=== PATIENT | female | born 1945 | race Caucasian/White ===

== ENCOUNTER → 2016-06-03 | Outpatient (CLI) | payer OTHER ==
[~2016-06-03] MED LIST: ASPI81TA28 PO; CALC-20 PO; CARB25TA14 PO; CHOL1CAP57 PO; COEN1CAP17 PO; ESCI10TA17 PO; LORA-741 PO; PRAM1TAB PO
--- NOTE | 2016-06-03 14:09 | MAMMOGRAPHY REPORT ---
BILATERAL DIGITAL SCREENING MAMMOGRAM TOMOSYNTHESIS WITH CAD: 06/03/2016 CLINICAL HISTORY: Routine screening. Patient has no complaints. TECHNIQUE: Breast tomosynthesis in addition to standard 2D mammography was performed. Current study was also evaluated with a Computer Aided Detection (CAD) system. COMPARISON: Comparison is made to exams dated: 12/08/2015 mammogram, 06/09/2015 mammogram, 06/01/2015 mammogram, 05/29/2014 mammogram, 05/28/2013 mammogram, and 05/10/2012 mammogram - [facility]. BREAST COMPOSITION: There are scattered areas of fibroglandular density in both breasts. FINDINGS: No suspicious masses, calcifications, or areas of architectural distortion are noted in e ither breast. There has been no significant interval change compared to prior exams. IMPRESSION: ACR BI-RADS CATEGORY 1: NEGATIVE There is no mammographic evidence of malignancy. A 1 year screening mammogram is recommended. The p atient will receive written notification of the results. Approximately 10% of breast cancers are not detected with mammography. A negative mammographic repor t should not delay biopsy if a clinically suggestive mass is present. Sarah Merida M.D. /:06/03/2016 07:59:41 Director Of Advertising Sales: Kailey GUPTA(Dunia)(Jessica), [facility] letter sent: Normal 1/2 BI-RADS Code: ACR BI-RADS Category 1: Negative
== END | disposition home or self-care (01) ==
LOC: C.MAMM 07:38
PROVIDERS: ATTEND Obstetrics & Gynecology
DX: Z12.31 Encounter for screening mammogram for malignant neoplasm of breast (principal)

== ENCOUNTER 2016-09-25 12:51 | Emergency (ER) | payer OTHER ==
[~2016-09-25] VITALS: Ht 162.6 cm; Wt 69.4 kg
[~2016-09-25 12:51] MED LIST changes: -LORA-741 PO
[2016-09-25 12:55] VITALS: TEMP 36.6; Ht 162.6 cm; Wt 69.4 kg
[2016-09-25] MEDS ORDERED: LORAZEPAM 0.5 MG TAB SL STA (13:07)
[2016-09-25] MEDS ORDERED: LORA-741 PO (14:29)
--- NOTE | 2016-09-25 14:30 | EMERGENCY ROOM VISIT NOTE ---
History First contact with patient: 12:57 Chief Complaint: OTHER COMPLAINT Stated Complaint: LF LEG TREMOR/PAIN History of Present Illness The patient is a 70 year old female who presents to the Emergency Room via EMS with complaints of worsening left leg tremor associated with her Parkinson's. The patient states over the last 4 days she has had increased left leg tremor. She states she can not walk due to the tremor. Her has been wheeling her in a wheelchair. The patient thinks it is anxiety. She is on anti-anxiety medicine. She takes Lexapro as well as buspirone 10 mg twice daily. The patient states that she called in to her doctor last week about the increased tremors and one of her medicines was increased she is not sure which one. She is followed by Sydney Fontana at [facility] for her Parkinson's. Unfortunately Ms. Fontana is leaving the practice on October 16 and therefore the patient's follow-up appointment was canceled. A new provider has not been selected for the patient yet. The patient is followed by Dr. Barnes locally. There is also concerned that she will need to be placed somewhere when her goes for a stem cell transplant at [facility] for his multiple myeloma. The states that he will get a call on October 10 to inform him when he will be going to [place] and the length of treatment. They are not looking for placement today. Review of Systems 10 system review was performed and was negative unless stated otherwise history of present illness. Past Medical/Surgical History Medical Problems: (1) Parkinson's disease Family History Lung disease Social History Smoking Status: Never Smoker Marital Status: Housing Status: lives with family Occupation Status: employed Current/Historical Medications Scheduled Aspirin (Aspirin Ec), 81 MG PO DAILY Calcium Carbonate-Vitamin D (Calcium 600 + D), 1 TABLET PO BID Carbidopa/Levodopa (Sinemet 25MG/250MG), 1 TAB PO QID Cholecalciferol (Vitamin D3), 1 CAPSULE PO QAM Coenzyme Q10 (Ubidecarenone) (Co Q 10), 100 MG PO QAM Escitalopram (Lexapro), 10 MG PO QAM Pramipexole Dihydrochloride (Mirapex), 1 MG PO 6 TIMES A DAY Allergies Coded Allergies: Sulfa Drugs (Verified Allergy, Intermediate, ITCH, NOT EFFECTIVE, 11/19/14) Physical Exam Vital Signs Date Time Temp Pulse Resp B/P (MAP) Pulse Ox O2 Delivery O2 Flow Rate FiO2 09/25/16 12:55 36.6 91 21 148/82 94 Room Air Physical Exam GENERAL: 70-year-old white female appears in no acute distress. Generalized tremor throughout MENTAL STATUS: Alert and oriented 3 NECK: Supple, no lymphadenopathy noted. No carotid bruits noted. LUNGS: Clear auscultation without wheezes rales or rhonchi. CARDIAC: Regular rate and rhythm without murmur. Pulses is full and equal throughout. MUSCULOSKELETAL: Patient has a resting tremor throughout but the left leg is much worse than the remainder of the extremities. Medical Decision & Procedures Medications Administered Medications (Trade) Dose Ordered Sig/Greg Route Start Time Stop Time Status Last Admin Dose Admin Lorazepam (Ativan Tab) 0.5 mg NOW STAT SL 09/25/16 13:07 09/25/16 13:08 DC 09/25/16 13:13 0.5 MG ED Course The patient was evaluated. I had the watch caser talk with the patient and her about initiating placement for the patient while her is at [facility]. They are not 1 need to do something today. They will contact Dr. Barnes closer to time of the 's treatment. The patient was given Ativan 0.5 mg by mouth. The patient was reevaluated and stated she was feeling much better. Her left leg had only a minimal tremor. I instructed the nurse to get the patient up and walk her to make sure she could ambulate with some assistance. The nurse was busy and could not get the patient up for quite some time and when I went into reevaluate the patient she had increased tremors because she was agitated. I was able to get the patient up and she was ambulating with my assistance with minimal difficulty. The patient was placed in a wheelchair so that the patient could take her home. The patient was discharged home in stable condition. Medical Decision The patient presented with worsening Parkinson tremor most likely secondary to anxiety and agitation. She responded well to Ativan. She will be discharged with a prescription for Ativan until she sees her family physician this week. Impression Primary Impression: Parkinson's disease Additional Impression: Anxiety Departure Information Dispostion Home / Self-Care Condition GOOD Prescriptions Lorazepam (ATIVAN) 0.5 Mg Tab 1 TAB PO Q6H, #12 TAB Prov: Stella Evans PA-C 09/25/16 Referrals Richie Johnson M.D. (PCP) Forms HOME CARE DOCUMENTATION FORM, IMPORTANT VISIT INFORMATION, WORK / SCHOOL INSTRUCTIONS Patient Instructions Anxiety Disorder, My [facility] Additional Instructions Continue all your current meds as prescribed. Take the Ativan as needed every 6 hours for agitation or increased tremor. Call Dr. Barnes tomorrow for follow- up appointment for reevaluation and discuss placement while your is in [place]. Problem Qualifiers
[2016-09-25 14:42] VITALS: BP 125/71; PULSE 84; O2SAT 96
--- NOTE | 2016-09-25 16:44 | EMERGENCY ROOM VISIT NOTE ---
ED Visit Note First contact with patient: 12:57 I have seen and examined this patient with Stella Evans and generally agree with the treatment plan as discussed.
== END 2016-09-25 14:43 | disposition home or self-care (01) ==
LOC: EDBD 12:51 → C.EDA 12:52
DX: G20 Parkinson's disease (principal); F41.9 Anxiety disorder, unspecified; Z79.82 Long term (current) use of aspirin

== ENCOUNTER → 2017-09-05 | Day surgery (SDC) | payer OTHER ==
[2017-08-08 11:40] VITALS: Ht 162.6 cm; Wt 53.2 kg
[~2017-09-05] VITALS: Ht 162.6 cm; Wt 53.2 kg
[~2017-09-05] MED LIST changes: +500ML BSS 0.3ML EPI 1:1000PF IRRIG ONE; +ACETAMINOPHEN 325 MG TAB PO PRN; +AMVISC PLUS 0.8ML SYRINGE INT OCU ONE; +ATROPINE SULFATE 0.1 MG/ML 5ML SYR IV PRN; +BSS FLUSH ONE; +BUSP-8 PO; -CALC-20 PO; +CALC600T9 PO; +CLON0.5T3 PO; -ESCI10TA17 PO; +ESCI1TAB10 PO; +EpHEDrine SULFATE INJ 50 MG/ML AMP IV PRN; +EpINEphrine INJ 1MG/ML AMP 1 MG/ML AMP ONE; +FSMD/70 PO; +LACTATED RINGER'S 1000ML 500 ML IV SCH; +LIDOCAINE 3.5% OPH GEL PER APPLICATION CHARGE ONE; +LIDOCAINE HCL 1% MPF 2 ML VIAL ONE; +MIDAZOLAM HCL 1 MG/ML 2ML VIAL ONE; +OCUCOAT 1 ML SOLN IO ONE; +POVIDONE-IODINE OP SOLN 30 ML BTL ONE; -PRAM1TAB PO; +PROPARACAINE 0.5% OP SOLN PER DROP CHARGE OPL SCH; +PSYLLIUM PO; +TOBRAMYCIN/DEXAMETHASONE OPH OINT PER APPLN CHARGE ONE
--- NOTE | 2017-09-05 09:23 | History & Physical Bridge - SC ---
H&P Re-Evaluation Bridge Note: I have examined the patient, reviewed the History & Physical and in the interval since the performance of the History & Physical I have noted the following changes of clinical significance: No changes noted
[2017-09-05] MEDS: PHENYLEPHRINE HCL 2.5% OP SOLN PER DROP CHARGE OPL SCH ×2 (09:26→09:33)
[2017-09-05] MEDS: TROPICAMIDE 1% OP SOLN PER DROP CHARGE OPL SCH ×2 (09:27→09:35)
[2017-09-05] MEDS: CYCLOPENTOLATE HCL 1% OP SOLN PER DROP CHARGE OPL SCH ×2 (09:28→09:35)
[2017-09-05] MEDS: KETOROLAC 0.5% OP SOLN PER DROP CHARGE OPL SCH ×2 (09:29→09:36)
[2017-09-05] MEDS: GATIFLOXACIN OP SOLN PER DROP CHARGE OPL SCH ×2 (09:31→09:40)
--- NOTE | 2017-09-05 09:58 | [facility] Operative Report ---
Operative Report Date of Service September 05, 2017. Operative Report 1. PREOPERATIVE DIAGNOSIS: Cataract of the left eye. 2. POSTOPERATIVE DIAGNOSIS: Same. 3. PROCEDURE: Phacoemulsification with intraocular lens implantation of the left eye. SURGEON: Dr. Fabien Martínez. ANESTHESIA: Topical Lidocaine gel, 1% Non- Preserved intracameral Lidocaine, and monitored intravenous sedation. INDICATIONS FOR THE PROCEDURE: The patient is a 71 - year-old female with a history of cataract of the left eye causing significant visual impairment. The details of the proposed procedure were explained to the patient who asked appropriate questions and following discussion of all risks, benefits and alternatives agreed to have the procedure done. 4. OPERATION AND FINDINGS: DESCRIPTION OF PROCEDURE: After informed consent was obtained, the patient was brought to the Operating Room at the [facility]. The patient was placed in a supine position and then the left eye was prepped and draped in the usual sterile fashion for intraocular surgery. A drop of topical Lidocaine gel was placed in the operative eye. A wire lid speculum was then placed in the fornices. A corneal paracentesis was then created temporally. The Non-Preserved Lidocaine was then instilled into the anterior chamber. The anterior chamber was then pressurized with viscoelastic. A 2.0 mm clear corneal incision was then created temporally. A cystotome was inserted into the anterior chamber and used to create a tear in the anterior lens capsule. This capsular tear was then used to create a small flap and the flap was dragged in a counterclockwise direction in order to create a continuous curvilinear capsulorrhexis. Hydrodissection was accomplished with balanced salt solution. Phacoemulsification of the lens nucleus was then performed in a standard [id number] technique. The phaco time was 21 seconds with an average power of 12 %. The remaining cortical material was removed using irrigation aspiration. The capsular bag was then filled with viscoelastic. A [employer] Lomb MI60L +18.0 diopters lens was then loaded into the injector and injected into the capsular bag. The remaining viscoelastic was removed with the irrigation aspiration handpiece. The wound was hydrated and then checked and found to be watertight. The intraocular pressure was checked and found to be adequate. The wire lid speculum was removed and the patient's face was cleaned and dried. TobraDex ointment was placed in the inferior fornix. The patient was discharged to the Recovery Room having tolerated the procedure well. There were no complications. The patient will be seen tomorrow in the office for follow-up. I attest to the content of the Intraoperative Record and any orders documented therein. Any exceptions are noted below.
--- NOTE | 2017-09-05 09:59 | Discharge Instructions-SurgCtr ---
Discharge Instructions Date of Service September 05, 2017. Visit Reason for Visit: Left Cataract Discharge Discharge Diagnosis / Problem: cataract Discharge Goals Goal(s): Improve function Activity Recommendations Activity Limitations: per Instructions/Follow-up section Anesthesia . Post Anesthesia Instructions: If you have had General Anesthesia or IV Sedation: * Do not drive today. * Resume driving when surgeon permits. * Do not make important decisions or sign legal documents today. * Call surgeon for: 1. Temperature elevations greater than 101 degrees F. 2. Uncontrollable pain. 3. Excessive bleeding. 4. Persistent nausea and vomiting. 5. Medication intolerance (nausea, vomiting or rash). * For nausea and vomiting use only clear liquids such as: tea, soda, bouillon until nausea subsides, then gradually increase diet as tolerated. * If you have any concerns or questions, call your surgeon's office. If physician is unavailable and it is an emergency, call 911 or go to the nearest emergency room. . Diet Recommendations Home Diet: resume previous diet Procedures Procedures Performed: Left Cataract Phacoemulsification With Intraocular Lens Implant Pending Studies Studies pending at discharge: no Medical Emergencies . Who to Call and When: Medical Emergencies: If at any time you feel your situation is an emergency, please call 911 immediately. . Non-Emergent Contact Non-Emergency issues call your: Director Speech And Hearing . . "Provider Documentation" section prepared by Fabien Martínez. .
[2017-09-05 10:01] VITALS: TEMP 36.4
[2017-09-05 10:34] VITALS: BP 136/81; PULSE 73; O2SAT 98
--- NOTE | 2017-09-05 10:40 | Anesthesia Progress Nt - [facility] ---
Anesthesia Post Op Note Date & Time September 05, 2017 at 10:40 Vital Signs Pain Intensity: 0 Vital Signs Past 12 Hours Date Time Temp Pulse Resp B/P (MAP) Pulse Ox O2 Delivery O2 Flow Rate FiO2 09/05/17 10:34 73 16 136/81 (99) 98 Room Air 09/05/17 10:01 36.4 71 16 146/78 (100) 98 Room Air 09/05/17 08:51 36.9 78 16 139/84 (102) 96 Room Air Notes Mental Status: alert / awake / arousable, participated in evaluation Pt Amnestic to Procedure: Yes Nausea / Vomiting: adequately controlled Pain: adequately controlled Airway Patency, RR, SpO2: stable & adequate BP & HR: stable & adequate Hydration State: stable & adequate Anesthetic Complications: no major complications apparent
== END | disposition home or self-care (01) ==
LOC: X.SURG 08:27
PROVIDERS: ATTEND Ophthalmology
DX: H26.9 Unspecified cataract (principal); G20 Parkinson's disease; F41.9 Anxiety disorder, unspecified; F32.9 Major depressive disorder, single episode, unspecified; Z88.2 Allergy status to sulfonamides; Z88.8 Allergy status to other drugs, medicaments and biological substances

== ENCOUNTER 2017-09-08 13:01 | Emergency (ER) | payer OTHER ==
[~2017-09-08] VITALS: Ht 152.4 cm; Wt 53.0 kg
[~2017-09-08 13:01] MED LIST changes: -500ML BSS 0.3ML EPI 1:1000PF IRRIG ONE; -ACETAMINOPHEN 325 MG TAB PO PRN; -AMVISC PLUS 0.8ML SYRINGE INT OCU ONE; -ATROPINE SULFATE 0.1 MG/ML 5ML SYR IV PRN; -BSS FLUSH ONE; -EpHEDrine SULFATE INJ 50 MG/ML AMP IV PRN; -EpINEphrine INJ 1MG/ML AMP 1 MG/ML AMP ONE; -LACTATED RINGER'S 1000ML 500 ML IV SCH; -LIDOCAINE 3.5% OPH GEL PER APPLICATION CHARGE ONE; -LIDOCAINE HCL 1% MPF 2 ML VIAL ONE; -MIDAZOLAM HCL 1 MG/ML 2ML VIAL ONE; -OCUCOAT 1 ML SOLN IO ONE; -POVIDONE-IODINE OP SOLN 30 ML BTL ONE; -PROPARACAINE 0.5% OP SOLN PER DROP CHARGE OPL SCH; -TOBRAMYCIN/DEXAMETHASONE OPH OINT PER APPLN CHARGE ONE
[2017-09-08 13:11] VITALS: TEMP 37.1; Ht 152.4 cm; Wt 53.0 kg
--- NOTE | 2017-09-08 14:22 | EMERGENCY ROOM VISIT NOTE ---
History Report prepared by Steffen: Dayana Guzman Under the Supervision of: Dr. Alexis Chávez M.D. 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 Positive back pain. Negative headache, neck pain, SOB, chest pain, abdominal pain. She states that she lives with her but came into the ED because she states "her wants to kill her." The patient notes she has ecchymosis to her LUE and reports this is from her "dragging her up the stairs." She takes Parkinson's medications regularly. Source of History: patient Onset: 6 days captain airline pilot Position: head, other (upper and lower extremities) Quality: other (fall) Timing: other (after her fall) Associated Symptoms: + back pain, No headache, No neck pain, No chest pain, No SOB, No abdominal pain Review of Systems See HPI for pertinent positives and negatives. A total of ten systems were reviewed and were otherwise negative. Past Medical & Surgical Medical Problems: (1) Parkinson's disease Family History Lung disease Social History Smoking Status: Never Smoker Marital Status: Housing Status: lives with family Occupation Status: employed Current/Historical Medications Scheduled Alendronate/Cholecalciferol (Fosamax+D 70MG/2800 Iu), 1 TABLET PO WK Aspirin (Aspirin Ec), 81 MG PO DAILY Buspirone Hcl (Buspirone Hcl), 1.5 TAB PO TID Calcium Carbonate-Vitamin D (Calcium + D), 1 TAB PO BID Carbidopa/Levodopa (Sinemet 25MG/250MG), 1 TAB PO QID Cholecalciferol (Vitamin D3), 1 CAPSULE PO QAM Coenzyme Q10 (Ubidecarenone) (Co Q 10), 100 MG PO QAM Escitalopram Oxalate (Lexapro), 20 MG PO QAM Venlafaxine Hcl (Effexor Extended Rel), 150 MG PO DAILY [Psyllium], 400 MG PO TID Scheduled PRN Clonazepam (Klonopin), 0.5 MG PO DIRECTED PRN for Anxiety Allergies Coded Allergies: Gabapentin (Verified Allergy, Unknown, INCREASED TREMORS, ANXIETY/ DEPRESSION, 09/08/17) Sulfa Antibiotics (Verified Allergy, Unknown, ITCH, 09/08/17) Physical Exam Vital Signs Date Time Temp Pulse Resp B/P (MAP) Pulse Ox O2 Delivery O2 Flow Rate FiO2 09/08/17 17:41 100 18 143/89 96 Room Air 09/08/17 16:52 99 18 147/88 98 Room Air 09/08/17 15:14 91 18 146/89 94 Room Air 09/08/17 13:44 78 09/08/17 13:11 37.1 83 18 106/69 95 Room Air Physical Exam GENERAL: Awake, alert, well-appearing, tearful, mild distress HENT: Normocephalic, atraumatic. EYES: Normal conjunctiva. Sclera non-icteric. PERRL. No anisocoria. NECK: Supple. No nuchal rigidity. FROM. No midline C Spine TTP. RESPIRATORY: CTAB, no rhonchi, wheezing, crackles CARDIAC: RRR, no MRG ABDOMEN: Soft, NTND, BS+ MSK: No chest wall TTP, no LE edema. Ecchymosis to the left upper arm. NEURO: GCS 15, CN 2-12 intact, moves all 4s on command, b/l UE tremors SKIN: No rash or jaundice noted. Medical Decision & Procedures ER Provider Diagnostic Interpretation: Radiology results as stated below per my review and radiologist interpretation: L HUMERUS MIN 2 VIEWS ROUTINE CLINICAL HISTORY: Left humeral pain. COMPARISON: None. DISCUSSION: No fractures or dislocations are visualized. A venous catheter is visualized in the antecubital fossa. IMPRESSION: No fractures or dislocations identified. Electronically signed by: Esau Chua M.D. 09/08/2017 2:[address] SCAN OF THE BRAIN WITHOUT IV CONTRAST CLINICAL HISTORY: Change in mental status. Psychiatric clearance. COMPARISON STUDY: No priors. TECHNIQUE: Unenhanced axial CT scan of the brain is performed from the vertex to the skull base. A dose lowering technique was utilized adhering to the principles of ALARA. The examination is compromised by motion artifact. The patient was scanned twice in an effort to improve image quality. CT DOSE: 1277.12 mGycm FINDINGS: Brain parenchyma: There are age-related involutional changes noting mild subcortical and periventricular microangiopathic change. There is no hemorrhage, mass effect, or evidence of acute territorial ischemia by CT criteria. [place]-white matter is preserved. No extra-axial fluid collection is seen. Ventricles, sulci, cisterns: Prominent secondary to involutional change. Intracranial vasculature: There is atherosclerotic calcification of the cavernous carotid and vertebral arteries. Calvarium: The skeletal structures are osteopenic. The calvarium appears intact. There is a small osteoma arising from the right frontal calvarium. Sinuses and mastoids: The visualized paranasal sinuses are clear. The mastoid air cells are well pneumatized. Orbits: The bony orbits are grossly intact. There is a left ocular lens implant. IMPRESSION: There is no hemorrhage, mass effect, or evidence of acute territorial ischemia by CT criteria noting a motion degraded examination. Electronically signed by: Asher Lima M.D. 09/08/2017 3:14 PM CHEST ONE VIEW PORTABLE CLINICAL HISTORY: Mood Disorder COMPARISON STUDY: No previous studies for comparison. FINDINGS: The heart is mildly enlarged. There is no failure. Increased basal markings are likely atelectatic. There are no pleural effusions.[ IMPRESSION: 1. Bibasilar opacities statistically atelectatic. No evidence of lobar consolidation Electronically signed by: Esau Chua M.D. 09/08/2017 2:58 PM Laboratory Results 09/08/17 14:45 Red Blood Count 4.25, Mean Corpuscular Volume 90.8, Mean Corpuscular Hemoglobin 31.1, Mean Corpuscular Hemoglobin Concent 34.2, Mean Platelet Volume 10.8, Neutrophils (%) (Auto) 66.2, Lymphocytes (%) (Auto) 25.6, Monocytes (%) (Auto) 6.5, Eosinophils (%) (Auto) 1.2, Basophils (%) (Auto) 0.3, Neutrophils # (Auto) 6.12, Lymphocytes # (Auto) 2.37, Monocytes # (Auto) 0.60, Eosinophils # (Auto) 0.11, Basophils # (Auto) 0.03 09/08/17 14:45 Test 09/08/17 14:25 09/08/17 14:44 09/08/17 14:45 09/08/17 15:50 Salicylates Level < 1.7 mg/dl (2.8-20) Acetaminophen Level < 2 ug/ml (10-30) Ethyl Alcohol mg/dL < 3.0 mg/dl (0-3) White Blood Count 9.25 K/uL (4.8-10.8) Red Blood Count 4.25 M/uL (4.2-5.4) Hemoglobin 13.2 g/dL (12.0-16.0) Hematocrit 38.6 % (37-47) Mean Corpuscular Volume 90.8 fL (80-100) Mean Corpuscular Hemoglobin 31.1 pg (25-34) Mean Corpuscular Hemoglobin Concent 34.2 g/dl (32-36) Platelet Count 291 K/uL (130-400) Mean Platelet Volume 10.8 fL (7.4-10.4) Neutrophils (%) (Auto) 66.2 % Lymphocytes (%) (Auto) 25.6 % Monocytes (%) (Auto) 6.5 % Eosinophils (%) (Auto) 1.2 % Basophils (%) (Auto) 0.3 % Neutrophils # (Auto) 6.12 K/uL (1.4-6.5) Lymphocytes # (Auto) 2.37 K/uL (1.2-3.4) Monocytes # (Auto) 0.60 K/uL (0.11-0.59) Eosinophils # (Auto) 0.11 K/uL (0-0.5) Basophils # (Auto) 0.03 K/uL (0-0.2) RDW Standard Deviation 45.6 fL (36.4-46.3) RDW Coefficient of Variation 13.8 % (11.5-14.5) Immature Granulocyte % (Auto) 0.2 % Immature Granulocyte # (Auto) 0.02 K/uL (0.00-0.02) Anion Gap 4.0 mmol/L (3-11) Est Creatinine Clear Calc Drug Dose 45.3 ml/min Estimated GFR () 82.8 Estimated GFR (Non- 71.4 BUN/Creatinine Ratio 24.9 (10-20) Calcium Level 9.2 mg/dl (8.5-10.1) Total Bilirubin 0.7 mg/dl (0.2-1) Direct Bilirubin 0.2 mg/dl (0-0.2) Aspartate Amino Transf (AST/SGOT) 28 U/L (15-37) Alanine Aminotransferase (ALT/SGPT) 10 U/L (12-78) Alkaline Phosphatase 99 U/L (45-117) Total Protein 8.0 gm/dl (6.4-8.2) Albumin 4.0 gm/dl (3.4-5.0) Thyroid Stimulating Hormone (TSH) 0.667 uIu/ml (0.300-4.500) Urine Color DK YELLOW Urine Appearance CLEAR (CLEAR) Urine pH 6.0 (4.5-7.5) Urine Specific [place] 1.028 (1.000-1.030) Urine Protein NEG (NEG) Urine Glucose (UA) NEG (NEG) Urine Ketones 1+ (NEG) Urine Occult Blood NEG (NEG) Urine Nitrite NEG (NEG) Urine Bilirubin NEG (NEG) Urine Urobilinogen NEG (NEG) Urine Leukocyte Esterase SMALL (NEG) Urine WBC (Auto) 5-10 /hpf (0-5) Urine RBC (Auto) 0-4 /hpf (0-4) Urine Hyaline Casts (Auto) >30 /lpf (0-5) Urine Epithelial Cells (Auto) >30 /lpf (0-5) Urine Bacteria (Auto) NEG (NEG) Urine Renal Epithelial Cells 0-5 /lpf (0-5) Urine Pathogenic Casts /lpf (0) Urine Opiates Screen NEG (NEG) Urine Methadone, Qualitative NEG (NEG) Urine Barbiturates NEG (NEG) Urine Phencyclidine (PCP) Level NEG (NEG) Ur Amphetamine/Methamphetamine NEG (NEG) MDMA (Ecstasy) Screen NEG (NEG) Urine Benzodiazepines Screen NEG (NEG) Urine Cocaine Metabolite NEG (NEG) Urine Marijuana (THC) NEG (NEG) Laboratory results reviewed by me Medications Administered Medications (Trade) Dose Ordered Sig/Greg Route Start Time Stop Time Status Last Admin Dose Admin Lorazepam (Ativan Inj) 2 mg STK-MED ONCE .ROUTE 09/08/17 14:52 09/08/17 14:53 DC 09/08/17 14:55 2 MG Lorazepam (Ativan Inj) 0.5 mg NOW STAT IV 09/08/17 15:30 09/08/17 15:31 DC 09/08/17 15:39 0.5 MG ECG Per My Interpretation Indication: other (fall) Rate (beats per minute): 82 Rhythm: normal sinus Findings: RBBB (wide), T-wave inversion (Anterior, Inferior), left axis deviation, no ectopy, other (wide QRS, ) Comparison ECG Date: 11/2014 Change: TWI and RBBB are old compared to 11/2014 ED Course 1417: The patient was evaluated in room B4. A complete history and physical exam was performed. 1515: I talked to [facility] Psych. The Psych Commercial Sales Consultant will come and talk to the patient and ensure home safety. 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 Positive back pain. Negative headache, neck pain, SOB, chest pain, abdominal pain. Nursing notes reviewed. Ancillary studies and prior records reviewed. Differential diagnosis: Etiologies such as ICH, mood disorder, infection, hypoglycemia, electrolyte abnormalities, cardiac sources, intracerebral event, toxicologic, neurologic, fracture, dislocation, neurovascular compromise, compartment syndrome, soft tissue injury, as well as others were entertained. Patient was seen and evaluated the bedside. Patient does have a known history of Parkinson's disease. There was concern about a fall days ago. The patient does have some mild ecchymosis to the left upper extremity. Patient denies falling the patient is tearful and wants to go home. Very limited history upon initial presentation. Patient did have a psych clearance workup as well as a CT of the brain to rule out any other traumatic injury that may be causing her emotional lability. Patient's blood work was fairly unremarkable CT brain is negative acute. Chest x-ray likely atelectasis. Humerus film negative for acute fracture or dislocation. Patient does have mild tremor on exam which is explained by her Parkinson's disease. The patient's did present at the bedside. She has been having weight waxing and waning dementia type symptoms. I did have both the psych telephonic case manager as well as telephonic case manager discuss possible care and placement of the patient. The is comfortable with taking the patient home and does have sufficient outpatient resources such as in-home care as well as possible long-term care in the future. He is agreeable to this plan of care. Patient was deemed suitable for outpatient follow-up and treatment at this time. Outpatient discharge Medication Reconcilliation Current Medication List: was personally reviewed by me Blood Pressure Screening Patient's blood pressure: Normal blood pressure Blood pressure disposition: Did not require urgent referral Impression Primary Impression: Dementia Additional Impression: Mood changes Scribe Attestation The scribe's documentation has been prepared under my direction and personally reviewed by me in its entirety. I confirm that the note above accurately reflects all work, treatment, procedures, and medical decision making performed by me. Departure Information Dispostion Home / Self-Care Referrals Richie Johnson M.D. (PCP) Patient Instructions Dementia Communicate Patients, Dementia Coping Tips Caregiver, Dementia Future Plan Caregiver, My [facility] Additional Instructions Please return to the emergency department if you have worsening or recurrent symptoms not amenable to at-home treatment. Please call for a follow-up appointment with her primary care physician. Please take your medications as prescribed. If you have other concerns and/or complaints please feel free to also call your primary care physician's office or return the ED for further evaluation, management, and treatment. Take your medications as prescribed. Please follow-up and utilize the resources provided by the telephonic case manager. You have been examined and treated today on an emergency basis only. This is not a substitute for, or an effort to provide, complete comprehensive medical care. It is impossible to recognize and treat all injuries or illnesses in a single emergency department visit. It is therefore important that you follow up closely with [facility], your PCP, and/or your specialist(s). Call as soon as possible for an appointment. Thank you for your time and consideration. I look forward to speaking with you again soon. Please don't hesitate to call us if you have any questions. Problem Qualifiers Primary Impression: Dementia Dementia type: unspecified type Dementia behavioral disturbance: with behavioral disturbance Qualified Codes: F03.91 - Unspecified dementia with behavioral disturbance
[2017-09-08] MEDS ORDERED: LORAZEPAM 2 MG/ML 1 ML VIAL ONE (14:52)
[2017-09-08 14:57] LABS: BASO % 0.3 %; BASO ABS # 0.03 K/uL (0-0.2); EOS % 1.2 %; EOS ABS # 0.11 K/uL (0-0.5); HEMATOCRIT 38.6 % (37-47); HEMOGLOBIN 13.2 g/dL (12.0-16.0); IG# 0.02 K/uL (0.00-0.02); LYMPH % 25.6 %; LYMPH ABS # 2.37 K/uL (1.2-3.4); MEAN CELL VOLUME 90.8 fL (80-100); MEAN CORPUSCULAR HEMOGLOBIN 31.1 pg (25-34); MEAN CORPUSCULAR HGB CONC 34.2 g/dl (32-36); MEAN PLATELET VOLUME 10.8 fL (7.4-10.4); MONO % 6.5 %; NEUT % 66.2 %; NEUT ABS # 6.12 K/uL (1.4-6.5); PLATELET COUNT 291 K/uL (130-400); RED CELL DISTRIBUTION WIDTH CV 13.8 % (11.5-14.5); RED CELL DISTRIBUTION WIDTH SD 45.6 fL (36.4-46.3); WHITE BLOOD COUNT 9.25 K/uL (4.8-10.8)
[2017-09-08] MEDS ORDERED: LORAZEPAM 2 MG/ML 1 ML VIAL IV STA ×2 (14:57→15:30)
--- NOTE | 2017-09-08 14:59 | DIAGNOSTIC IMAGING REPORT ---
CHEST ONE VIEW PORTABLE CLINICAL HISTORY: Mood Disorder COMPARISON STUDY: No previous studies for comparison. FINDINGS: The heart is mildly enlarged. There is no failure. Increased basal markings are likely atelectatic. There are no pleural effusions.[ IMPRESSION: 1. Bibasilar opacities statistically atelectatic. No evidence of lobar consolidation Electronically signed by: Esau Chua M.D. 09/08/2017 2:58 PM Dictated Date/Time: 09/08/2017 2:57 PM
--- NOTE | 2017-09-08 15:00 | DIAGNOSTIC IMAGING REPORT ---
L HUMERUS MIN 2 VIEWS ROUTINE CLINICAL HISTORY: Left humeral pain. COMPARISON: None. DISCUSSION: No fractures or dislocations are visualized. A venous catheter is visualized in the antecubital fossa. IMPRESSION: No fractures or dislocations identified. Electronically signed by: Esau Chua M.D. 09/08/2017 2:59 PM Dictated Date/Time: 09/08/2017 2:58 PM
[2017-09-08] MEDS ORDERED: VENL150C56 PO (15:10)
--- NOTE | 2017-09-08 15:15 | DIAGNOSTIC IMAGING REPORT ---
CT SCAN OF THE BRAIN WITHOUT IV CONTRAST CLINICAL HISTORY: Change in mental status. Psychiatric clearance. COMPARISON STUDY: No priors. TECHNIQUE: Unenhanced axial CT scan of the brain is performed from the vertex to the skull base. A dose lowering technique was utilized adhering to the principles of ALARA. The examination is compromised by motion artifact. The patient was scanned twice in an effort to improve image quality. CT DOSE: 1277.12 mGycm FINDINGS: Brain parenchyma: There are age-related involutional changes noting mild subcortical and periventricular microangiopathic change. There is no hemorrhage, mass effect, or evidence of acute territorial ischemia by CT criteria. [place]-white matter is preserved. No extra-axial fluid collection is seen. Ventricles, sulci, cisterns: Prominent secondary to involutional change. Intracranial vasculature: There is atherosclerotic calcification of the cavernous carotid and vertebral arteries. Calvarium: The skeletal structures are osteopenic. The calvarium appears intact. There is a small osteoma arising from the right frontal calvarium. Sinuses and mastoids: The visualized paranasal sinuses are clear. The mastoid air cells are well pneumatized. Orbits: The bony orbits are grossly intact. There is a left ocular lens implant. IMPRESSION: There is no hemorrhage, mass effect, or evidence of acute territorial ischemia by CT criteria noting a motion degraded examination. Electronically signed by: Asher Lima M.D. 09/08/2017 3:14 PM Dictated Date/Time: 09/08/2017 3:11 PM
[2017-09-08 15:26] LABS: CALCIUM 9.2 mg/dl (8.5-10.1); CREATININE 0.83 mg/dl (0.60-1.20)
[2017-09-08 17:41] VITALS: BP 143/89; PULSE 100; O2SAT 96
== END 2017-09-08 17:55 | disposition home or self-care (01) ==
LOC: EDBD 13:01 → C.EDB 13:02
DX: F03.91 Unspecified dementia, unspecified severity, with behavioral disturbance (principal); F39 Unspecified mood [affective] disorder; G20 Parkinson's disease; Z88.8 Allergy status to other drugs, medicaments and biological substances; Z88.2 Allergy status to sulfonamides

== ENCOUNTER 2017-11-17 13:35 | Emergency (ER) | payer OTHER ==
[~2017-11-17] VITALS: Ht 162.6 cm; Wt 50.9 kg
[~2017-11-17 13:35] MED LIST changes: -CLON0.5T3 PO; -ESCI1TAB10 PO; +KLN/5 PO; +VENL150C56 PO
[2017-11-17 13:44] VITALS: TEMP 36.6; Ht 162.6 cm; Wt 50.9 kg
[2017-11-17] MEDS ORDERED: SODIUM CHLORIDE 0.9% 500ML 500 ML IV STA (13:44)
[2017-11-17] MEDS ORDERED: OPTIRAY 320 IV PRN (14:00)
[2017-11-17 14:05] LABS: BASO % 0.2 %; BASO ABS # 0.02 K/uL (0-0.2); EOS % 2.1 %; EOS ABS # 0.17 K/uL (0-0.5); HEMATOCRIT 36.9 % (37-47); IG# 0.02 K/uL (0.00-0.02); LYMPH % 35.3 %; LYMPH ABS # 2.84 K/uL (1.2-3.4); MEAN CELL VOLUME 91.6 fL (80-100); MEAN CORPUSCULAR HEMOGLOBIN 29.8 pg (25-34); MEAN CORPUSCULAR HGB CONC 32.5 g/dl (32-36); MONO % 6.3 %; MONO ABS # 0.51 K/uL (0.11-0.59); NEUT % 55.9 %; NEUT ABS # 4.49 K/uL (1.4-6.5); PLATELET COUNT 244 K/uL (130-400); RED CELL DISTRIBUTION WIDTH CV 14.2 % (11.5-14.5); WHITE BLOOD COUNT 8.05 K/uL (4.8-10.8)
[2017-11-17] MEDS ORDERED: KLN/5 PO (14:19)
[2017-11-17] MEDS ORDERED: EFFSR150 PO (14:19)
[2017-11-17] MEDS ORDERED: ZYP25 PO (14:19)
[2017-11-17] MEDS ORDERED: CHOL400T PO (14:19)
[2017-11-17] MEDS ORDERED: MULT-307 PO (14:19)
[2017-11-17 14:24] LABS: ALBUMIN 3.4 gm/dl (3.4-5.0); CALCIUM 8.9 mg/dl (8.5-10.1); CREATININE 0.62 mg/dl (0.60-1.20); POTASSIUM 4.4 mmol/L (3.5-5.1)
--- NOTE | 2017-11-17 15:42 | DIAGNOSTIC IMAGING REPORT ---
ABDOMEN AND PELVIS CT WITH IV CONTRAST CT DOSE: 259.63 mGy.cm HISTORY: Acute generalized abdominal pain abd pain TECHNIQUE: Multiaxial CT images of the abdomen and pelvis were performed following the use of intravenous contrast. A dose lowering technique was utilized adhering to the principles of ALARA. COMPARISON STUDY: None. FINDINGS: Mild subsegmental bibasilar atelectasis. No pneumatosis or pneumoperitoneum. Imaged inferior cardiac chambers are mildly enlarged. Circumscribed hypodense lesions about the liver measuring up to 1.8 cm and the right hepatic lobe and 1.9 cm and the left hepatic lobe suggest hepatic cysts. No intrahepatic biliary ductal dilation. The spleen, pancreas and adrenal glands are unremarkable. 3 mm nonobstructing calculus of the inferior pole right kidney. Kidneys and ureters are otherwise unremarkable. Mild urinary bladder distention. Uterus appears age appropriate. No adnexal mass lesions. Abdominal aorta and IVC are unremarkable. The right internal and external iliac arteries and may directly from the IVC. Retroaortic left renal vein. Limited study secondary to be moderately artifact from patient's arm positioning and mild movement. No definite pathologically enlarged lymph nodes identified. Small sliding-type hiatal hernia. There is a suggested diverticulum of the gastric fundus. No small bowel obstruction. Large stool ball the rectum measuring up to 6.8 cm transversely. Additionally, there is mild rectal wall thickening with perirectal stranding. Moderate to extensive formed stool throughout the colon. Appendix not definitively seen. Air-filled structure of the right lower quadrant abdomen, image 192 series 3 may reflect a normal appendix. Mild generalized body wall edema. Demineralized appearance of the bones. Compression deformity is are seen at T12 and L1 to lesser extent at L2 with approximately 40% anterior endplate compression deformity at T12. No significant retropulsion at these levels. These are age-indeterminate. Severe multilevel facet arthropathy. Remote appearing displaced left superior and inferior pubic rami fractures with probable remote right inferior pubic ramus fracture also noted. Degenerative changes about the bilateral SI joints. IMPRESSION: 1. Constipation without bowel obstruction. Circumferential wall thickening of the rectum with mild perirectal stranding may reflect stercoral proctitis. 2. Age-indeterminate compression deformities at T12-L2, likely chronic. Correlate with point tenderness and patient history. 3. Remote pelvic fractures as detailed above. 4. Small sliding-type hiatal hernia. 5. Additional incidental findings as above. Electronically signed by: Tony Cohn M.D. 11/17/2017 3:40 PM Dictated Date/Time: 11/17/2017 3:30 PM
[2017-11-17] MEDS ORDERED: SOD PHOSPHATE/SOD BIPHOSPHATE ENEMA 132 ML BTL PR STA (15:43)
[2017-11-17 17:04] VITALS: BP 160/93; PULSE 123; O2SAT 99
--- NOTE | 2017-11-17 19:07 | EMERGENCY ROOM VISIT NOTE ---
History Report prepared by Steffen: Jen Braga Under the Supervision of: Dr. Pradip Cordero D.O. First contact with patient: 13:36 Chief Complaint: ABDOMINAL PAIN Stated Complaint: ABDOMINAL PAIN History of Present Illness The patient is a 72 year old female who presents to the Emergency Room with complaints of lower abdominal pain beginning at 0800 this morning. The patient states that she has had this pain before and that it was constipation. She reports being nauseous but denies vomiting or having urinary symptoms. The patient reports that her bowel movement this morning was normal but was small. The patient reports that she always has a resting tremor secondary to Parkinson' s. Per patient does have a history of dementia. She is currently at her baseline. History limited secondary to dementia. Source of History: patient Onset: 0800 this morning Position: abdomen Quality: other (pain) Associated Symptoms: + nausea, No vomiting, No urinary symptoms Review of Systems See HPI for pertinent positives & negatives. A total of 10 systems reviewed and were otherwise negative. Past Medical & Surgical Medical Problems: (1) Parkinson's disease Family History Lung disease Social History Smoking Status: Never Smoker Marital Status: Housing Status: lives with family Occupation Status: employed Current/Historical Medications Scheduled Alendronate/Cholecalciferol (Fosamax+D 70MG/2800 Iu), 1 TABLET PO WK Aspirin (Aspirin Ec), 81 MG PO DAILY Carbidopa/Levodopa (Sinemet 25MG/250MG), 1 TAB PO QID Cholecalciferol (Vitamin D), 400 UNITS PO QPM Clonazepam (Klonopin), 0.5 MG PO HS Coenzyme Q10 (Ubidecarenone) (Co Q 10), 100 MG PO QAM Multiple Vitamins W/ Minerals (One Daily Complete), 1 TAB PO DAILY Olanzapine (Olanzapine), 1.25 MG PO AMPM Venlafaxine Hcl (Effexor Extended Rel), 150 MG PO QAM Scheduled PRN Clonazepam (Klonopin), 0.25 MG PO BID PRN for Anxiety Allergies Coded Allergies: Gabapentin (Verified Allergy, Unknown, INCREASED TREMORS, ANXIETY/ DEPRESSION, 11/17/17) Sulfa Antibiotics (Verified Allergy, Unknown, ITCH, 11/17/17) Physical Exam Vital Signs Date Time Temp Pulse Resp B/P (MAP) Pulse Ox O2 Delivery O2 Flow Rate FiO2 8/3/18 17:04 123 20 160/93 99 11/17/17 15:44 118 20 210/115 97 11/17/17 13:44 36.6 94 16 119/73 95 Room Air Physical Exam GENERAL: Sitting up in bed, pleasantly demented, no acute distress, non-toxic EYE EXAM: normal conjunctiva. OROPHARYNX: no exudate, no erythema, lips, buccal mucosa, and tongue normal and mucous membranes are dry NECK: supple, no nuchal rigidity, no adenopathy, non-tender LUNGS: Clear to auscultation. Normal chest wall mechanics HEART: no murmurs, S1 normal and S2 normal ABDOMEN: abdomen soft, non-tender, normo-active bowel sounds, no masses, no rebound or guarding. BACK: Back is symmetrical on inspection and there is no deformity, no midline tenderness, no CVA tenderness. SKIN: no rashes and no bruising UPPER EXTREMITIES: upper extremities are grossly normal. LOWER EXTREMITIES: No pitting edema. NEURO EXAM: Awake, alert, following commands, non-focal, no acute distress. At baseline with dementia per . Medical Decision & Procedures ER Provider Diagnostic Interpretation: Radiology results as stated below per my review and the radiologist's interpretation: ABDOMEN AND PELVIS CT WITH IV CONTRAST CT DOSE: 259.63 mGy.cm HISTORY: Acute generalized abdominal pain abd pain TECHNIQUE: Multiaxial CT images of the abdomen and pelvis were performed following the use of intravenous contrast. A dose lowering technique was utilized adhering to the principles of ALARA. COMPARISON STUDY: None. FINDINGS: Mild subsegmental bibasilar atelectasis. No pneumatosis or pneumoperitoneum. Imaged inferior cardiac chambers are mildly enlarged. Circumscribed hypodense lesions about the liver measuring up to 1.8 cm and the right hepatic lobe and 1.9 cm and the left hepatic lobe suggest hepatic cysts. No intrahepatic biliary ductal dilation. The spleen, pancreas and adrenal glands are unremarkable. 3 mm nonobstructing calculus of the inferior pole right kidney. Kidneys and ureters are otherwise unremarkable. Mild urinary bladder distention. Uterus appears age appropriate. No adnexal mass lesions. Abdominal aorta and IVC are unremarkable. The right internal and external iliac arteries and may directly from the IVC. Retroaortic left renal vein. Limited study secondary to be moderately artifact from patient's arm positioning and mild movement. No definite pathologically enlarged lymph nodes identified. Small sliding-type hiatal hernia. There is a suggested diverticulum of the gastric fundus. No small bowel obstruction. Large stool ball the rectum measuring up to 6.8 cm transversely. Additionally, there is mild rectal wall thickening with perirectal stranding. Moderate to extensive formed stool throughout the colon. Appendix not definitively seen. Air-filled structure of the right lower quadrant abdomen, image 192 series 3 may reflect a normal appendix. Mild generalized body wall edema. Demineralized appearance of the bones. Compression deformity is are seen at T12 and L1 to lesser extent at L2 with approximately 40% anterior endplate compression deformity at T12. No significant retropulsion at these levels. These are age-indeterminate. Severe multilevel facet arthropathy. Remote appearing displaced left superior and inferior pubic rami fractures with probable remote right inferior pubic ramus fracture also noted. Degenerative changes about the bilateral SI joints. IMPRESSION: 1. Constipation without bowel obstruction. Circumferential wall thickening of the rectum with mild perirectal stranding may reflect stercoral proctitis. 2. Age-indeterminate compression deformities at T12-L2, likely chronic. Correlate with point tenderness and patient history. 3. Remote pelvic fractures as detailed above. 4. Small sliding-type hiatal hernia. 5. Additional incidental findings as above. Electronically signed by: Tony Cohn M.D. 11/17/2017 3:40 PM Dictated Date/Time: 11/17/2017 3:30 PM Laboratory Results 11/17/17 13:55 Red Blood Count 4.03, Mean Corpuscular Volume 91.6, Mean Corpuscular Hemoglobin 29.8, Mean Corpuscular Hemoglobin Concent 32.5, Mean Platelet Volume 11.0, Neutrophils (%) (Auto) 55.9, Lymphocytes (%) (Auto) 35.3, Monocytes (%) (Auto) 6.3, Eosinophils (%) (Auto) 2.1, Basophils (%) (Auto) 0.2, Neutrophils # (Auto) 4.49, Lymphocytes # (Auto) 2.84, Monocytes # (Auto) 0.51, Eosinophils # (Auto) 0.17, Basophils # (Auto) 0.02 11/17/17 13:55 Test 11/17/17 13:55 11/17/17 15:52 White Blood Count 8.05 K/uL (4.8-10.8) Red Blood Count 4.03 M/uL (4.2-5.4) Hemoglobin 12.0 g/dL (12.0-16.0) Hematocrit 36.9 % (37-47) Mean Corpuscular Volume 91.6 fL (80-100) Mean Corpuscular Hemoglobin 29.8 pg (25-34) Mean Corpuscular Hemoglobin Concent 32.5 g/dl (32-36) Platelet Count 244 K/uL (130-400) Mean Platelet Volume 11.0 fL (7.4-10.4) Neutrophils (%) (Auto) 55.9 % Lymphocytes (%) (Auto) 35.3 % Monocytes (%) (Auto) 6.3 % Eosinophils (%) (Auto) 2.1 % Basophils (%) (Auto) 0.2 % Neutrophils # (Auto) 4.49 K/uL (1.4-6.5) Lymphocytes # (Auto) 2.84 K/uL (1.2-3.4) Monocytes # (Auto) 0.51 K/uL (0.11-0.59) Eosinophils # (Auto) 0.17 K/uL (0-0.5) Basophils # (Auto) 0.02 K/uL (0-0.2) RDW Standard Deviation 48.0 fL (36.4-46.3) RDW Coefficient of Variation 14.2 % (11.5-14.5) Immature Granulocyte % (Auto) 0.2 % Immature Granulocyte # (Auto) 0.02 K/uL (0.00-0.02) Anion Gap 7.0 mmol/L (3-11) Est Creatinine Clear Calc Drug Dose 66.9 ml/min Estimated GFR () 105.1 Estimated GFR (Non- 90.7 BUN/Creatinine Ratio 30.1 (10-20) Calcium Level 8.9 mg/dl (8.5-10.1) Total Bilirubin 0.4 mg/dl (0.2-1) Direct Bilirubin 0.1 mg/dl (0-0.2) Aspartate Amino Transf (AST/SGOT) 26 U/L (15-37) Alanine Aminotransferase (ALT/SGPT) 11 U/L (12-78) Alkaline Phosphatase 77 U/L (45-117) Total Protein 7.0 gm/dl (6.4-8.2) Albumin 3.4 gm/dl (3.4-5.0) Lipase 124 U/L (73-393) Urine Color YELLOW Urine Appearance CLEAR (CLEAR) Urine pH 8.0 (4.5-7.5) Urine Specific [place] 1.036 (1.000-1.030) Urine Protein NEG (NEG) Urine Glucose (UA) NEG (NEG) Urine Ketones NEG (NEG) Urine Occult Blood NEG (NEG) Urine Nitrite NEG (NEG) Urine Bilirubin NEG (NEG) Urine Urobilinogen NEG (NEG) Urine Leukocyte Esterase NEG (NEG) Urine WBC (Auto) 0 /hpf (0-5) Urine RBC (Auto) 0-4 /hpf (0-4) Urine Hyaline Casts (Auto) 0 /lpf (0-5) Urine Epithelial Cells (Auto) 10-20 /lpf (0-5) Urine Bacteria (Auto) NEG (NEG) Laboratory results per my review. Medications Administered Medications (Trade) Dose Ordered Sig/Greg Route Start Time Stop Time Status Last Admin Dose Admin Sodium Chloride 500 ml @ 999 mls/hr Q31M STAT IV 11/17/17 13:44 11/17/17 14:14 DC 11/17/17 13:58 999 MLS/HR Sodium Biphosphate/ Sodium Phosphate (Fleet Enema) 132 ml NOW STAT PA 11/17/17 15:43 11/17/17 15:44 DC 11/17/17 16:08 132 ML ED Course ED COURSE: Vital signs were reviewed and were normal. The patients medical record was reviewed The above diagnostic studies were performed and reviewed. ED treatments and interventions as stated above. 1340: The patient was evaluated in room A12B. A complete history and physical examination was performed. 1344: Ordered Sodium Chloride 500 ml @ 999 mls/hr IV. 1525: I checked on the patient. She is tearful. Her is at bedside who notes that this is typical for the patient. 1543: Ordered Fleet Enema 132 ml PA. 1647: Upon reevaluation, the patient is feeling better. I discussed the findings and the treatment plan with the patient and her . She verbalizes agreement and understanding. She was discharged home. Medical Decision Differential diagnoses includes but is not limited to gastritis, peptic ulcer disease, GERD, gallbladder disease, pancreatitis, small bowel obstruction, acute coronary syndrome, pericarditis, ischemic bowel, irritable bowel disease, irritable bowel syndrome, appendicitis, diverticulitis, malignancy, hernia, urinary tract infection, torsion, /ectopic (if female), perforation, trauma, infectious. Patient is a 72-year-old female who presents the ER for lower lower abdominal pain. She does have a history of dementia and is at baseline per family. Labs were obtained and CT shows large amount constipation. Patient was given enema. She did have a bowel movement. He notes that she becomes very anxious. This did occur throughout her evaluation. She was requesting to leave. After the 2 small bowel movements with the enema I offered additional enemas but the patient 's declined. notes that he wants to take her home. I gave her him strict instructions for MiraLAX cleanout. Patient and family were updated bedside discharge follow-up with PCP as an outpatient. CBC along with BMP, LFTs , bilirubin lipase was unremarkable. UA was negative. Discussed with Pt concerning signs and symptoms to watch out for. Pt was instructed to follow up with their PCP and discussed with the patient their option to return to the ED at anytime for persistent or worsening symptoms. The appropriate anticipatory guidance and out-patient management, including indications for return to the emergency department, were explained at length to the patient and understood. Medication Reconcilliation Current Medication List: was personally reviewed by me Blood Pressure Screening Patient's blood pressure: Normal blood pressure Impression Primary Impression: Abdominal pain Additional Impressions: Constipation Anxiety Scribe Attestation The scribe's documentation has been prepared under my direction and personally reviewed by me in its entirety. I confirm that the note above accurately reflects all work, treatment, procedures, and medical decision making performed by me. Departure Information Dispostion Home / Self-Care Referrals Richie Johnson M.D. (PCP) Forms Call Back Authorization, HOME CARE DOCUMENTATION FORM, IMPORTANT VISIT INFORMATION Patient Instructions Constipation, My [facility] Additional Instructions Please follow up with your primary care doctor with in the next 24 hours. Any worsening of your symptoms, please return to the ED immediately. This includes any fevers greater than 100.4, worsening pain, chest pain, shortness breath, persistent nausea, vomiting, unable to eat or drink, or any other concerning signs or symptoms from your standpoint. Please take 250 g of MiraLAX mixed with 64 ounces of Gatorade. Please drink 8 ounces every 15-30 minutes until she has a bowel movement. This can be repeated once. Problem Qualifiers Primary Impression: Abdominal pain Abdominal location: unspecified location Qualified Codes: R10.9 - Unspecified abdominal pain Additional Impressions: Constipation Constipation type: unspecified constipation type Qualified Codes: K59.00 - Constipation, unspecified
== END 2017-11-17 17:05 | disposition home or self-care (01) ==
LOC: EDBD 13:35 → C.EDA 13:36
DX: R10.30 Lower abdominal pain, unspecified (principal); K59.00 Constipation, unspecified; F41.9 Anxiety disorder, unspecified; F03.90 Unspecified dementia, unspecified severity, without behavioral disturbance, psychotic disturbance, mood disturbance, and anxiety; G20 Parkinson's disease; Z88.8 Allergy status to other drugs, medicaments and biological substances; Z88.1 Allergy status to other antibiotic agents; Z79.82 Long term (current) use of aspirin; Z79.899 Other long term (current) drug therapy

== ENCOUNTER 2017-11-24 10:47 | Emergency (ER) | payer OTHER ==
[~2017-11-24] VITALS: Ht 162.6 cm; Wt 50.4 kg
[~2017-11-24 10:47] MED LIST changes: -ASPI81TA28 PO; -BUSP-8 PO; -CALC600T9 PO; -CARB25TA14 PO; -CHOL1CAP57 PO; -COEN1CAP17 PO; -PSYLLIUM PO; -VENL150C56 PO
[2017-11-24 10:56] VITALS: TEMP 36.8; Ht 162.6 cm; Wt 50.4 kg
--- NOTE | 2017-11-24 11:45 | EMERGENCY ROOM VISIT NOTE ---
History Report prepared by Steffen: Jen Braga Under the Supervision of: Dr. Falguni Lugo M.D. First contact with patient: 11:36 Chief Complaint: ILLNESS History of Present Illness The patient is a 72 year old female who presents to the Emergency Room with complaints of constipation over the last 2 days. The patient reports that she was here a few days ago because her took her so she could have a bowel movement. She states that she was told that she does not have enough bowel movements and that she needed to go to the hospital. The patient denies having abdominal pain and states that her last bowel movement was 2 days ago. She denies having fevers, shortness of breath, and back pain. The patient states that she has Parkinson's Disease. The patient states that her wants to put her in a jail. The patient reports that her feeds her, assist her in the bathroom, getting dressed and gives her medications. Review of EMR shows that the patient was here on 11/17. Her CT showed constipation and she was given a fleet enema with minimal success but they wanted to go home. The patient has not had a BM since the . Source of History: patient Onset: over the last 2 days Position: other (rectum) Quality: other (constipation) Timing: constant Associated Symptoms: No fevers, No SOB, No abdominal pain, No back pain Review of Systems See HPI for pertinent positives & negatives. A total of 10 systems reviewed and were otherwise negative. Past Medical & Surgical Medical Problems: (1) Parkinson's disease Family History Lung disease Social History Smoking Status: Never Smoker Marital Status: Housing Status: lives with family Occupation Status: employed Current/Historical Medications Scheduled Alendronate Sodium (Alendronate Sodium), 70 MG PO WK Aspirin (Aspirin Ec), 81 MG PO DAILY Carbidopa/Levodopa (Sinemet 25MG/250MG), 1 TAB PO QID Cholecalciferol (Vitamin D), 400 INTER.UNIT PO QPM Clonazepam (Klonopin), 0.5 MG PO HS Coenzyme Q10 (Ubidecarenone) (Co Q 10), 100 MG PO QAM Multiple Vitamins W/ Minerals (One Daily Complete), 1 TAB PO DAILY Olanzapine (Olanzapine), 1.25 MG PO AMPM Venlafaxine Hcl (Effexor Extended Rel), 150 MG PO QAM Scheduled PRN Clonazepam (Klonopin), 0.25 MG PO BID PRN for Anxiety Allergies Coded Allergies: Gabapentin (Verified Allergy, Unknown, INCREASED TREMORS, ANXIETY/ DEPRESSION, 11/17/17) Sulfa Antibiotics (Verified Allergy, Unknown, ITCH, 11/17/17) Physical Exam Vital Signs Date Time Temp Pulse Resp B/P (MAP) Pulse Ox O2 Delivery O2 Flow Rate FiO2 11/24/17 16:30 18 97/64 98 11/24/17 14:42 92 20 137/91 100 Room Air 11/24/17 13:34 86 18 119/73 95 Room Air 11/24/17 12:20 94 11/24/17 11:55 96 22 137/84 98 Room Air 11/24/17 10:56 36.8 98 18 132/79 98 Room Air Physical Exam Vital signs reviewed. General: Tearful, anxious appearing female, in no significant distress. HEENT: No scleral icterus, PERRLA, neck supple. Atraumatic. Cardiovascular: Regular rate and rhythm, no extra sounds. Pulmonary: Clear to auscultation bilaterally, normal work of breathing. Abdomen: Soft, nontender, nondistended, positive bowel sounds. Musculoskeletal: Atraumatic, no peripheral edema. Neurologic: Patient awake alert and able to follow commands. She is pleasantly confused, full strength in all 4 extremities. Cranial nerves 2 through 12 grossly intact. Bilateral upper extremity tremors. Skin: Warm, dry, no rash Medical Decision & Procedures ER Provider Diagnostic Interpretation: Radiology results as stated below per my review and radiologist interpretation: KUB CLINICAL HISTORY: constipation pain COMPARISON STUDY: No previous studies for comparison. FINDINGS: Increased fecal load throughout the entire colon. This consistent with fecal stasis. Mild fecal impaction. IMPRESSION: Mild fecal impaction. Increased fecal load throughout the entire colon consistent with fecal stasis. The above report was generated using voice recognition software. It may contain grammatical, syntax or spelling errors. Electronically signed by: Richie Evans M.D. 11/24/2017 12:59 PM Dictated Date/Time: 11/24/2017 12:59 PM Laboratory Results 11/24/17 11:50 Red Blood Count 3.89, Mean Corpuscular Volume 92.0, Mean Corpuscular Hemoglobin 30.6, Mean Corpuscular Hemoglobin Concent 33.2, Mean Platelet Volume 10.4, Neutrophils (%) (Auto) 63.6, Lymphocytes (%) (Auto) 29.0, Monocytes (%) (Auto) 5.4, Eosinophils (%) (Auto) 1.3, Basophils (%) (Auto) 0.4, Neutrophils # (Auto) 6.07, Lymphocytes # (Auto) 2.77, Monocytes # (Auto) 0.52, Eosinophils # (Auto) 0.12, Basophils # (Auto) 0.04 11/24/17 11:50 Test 11/24/17 11:50 White Blood Count 9.55 K/uL (4.8-10.8) Red Blood Count 3.89 M/uL (4.2-5.4) Hemoglobin 11.9 g/dL (12.0-16.0) Hematocrit 35.8 % (37-47) Mean Corpuscular Volume 92.0 fL (80-100) Mean Corpuscular Hemoglobin 30.6 pg (25-34) Mean Corpuscular Hemoglobin Concent 33.2 g/dl (32-36) Platelet Count 230 K/uL (130-400) Mean Platelet Volume 10.4 fL (7.4-10.4) Neutrophils (%) (Auto) 63.6 % Lymphocytes (%) (Auto) 29.0 % Monocytes (%) (Auto) 5.4 % Eosinophils (%) (Auto) 1.3 % Basophils (%) (Auto) 0.4 % Neutrophils # (Auto) 6.07 K/uL (1.4-6.5) Lymphocytes # (Auto) 2.77 K/uL (1.2-3.4) Monocytes # (Auto) 0.52 K/uL (0.11-0.59) Eosinophils # (Auto) 0.12 K/uL (0-0.5) Basophils # (Auto) 0.04 K/uL (0-0.2) RDW Standard Deviation 47.8 fL (36.4-46.3) RDW Coefficient of Variation 14.3 % (11.5-14.5) Immature Granulocyte % (Auto) 0.3 % Immature Granulocyte # (Auto) 0.03 K/uL (0.00-0.02) Anion Gap 7.0 mmol/L (3-11) Est Creatinine Clear Calc Drug Dose 62.2 ml/min Estimated GFR () 103.0 Estimated GFR (Non- 88.9 BUN/Creatinine Ratio 21.4 (10-20) Calcium Level 9.1 mg/dl (8.5-10.1) Total Bilirubin 0.5 mg/dl (0.2-1) Direct Bilirubin 0.2 mg/dl (0-0.2) Aspartate Amino Transf (AST/SGOT) 24 U/L (15-37) Alanine Aminotransferase (ALT/SGPT) 9 U/L (12-78) Alkaline Phosphatase 87 U/L (45-117) Total Protein 7.1 gm/dl (6.4-8.2) Albumin 3.6 gm/dl (3.4-5.0) Lipase 103 U/L (73-393) Laboratory results per my review. Medications Administered Medications (Trade) Dose Ordered Sig/Greg Route Start Time Stop Time Status Last Admin Dose Admin Miscellaneous (Soap Suds Enema) 1 ea NOW STAT NE 11/24/17 13:23 11/24/17 13:25 DC 11/24/17 14:49 1 EA Magnesium Citrate (Citrate Of Magnesia Soln) 150 ml NOW STAT PO 11/24/17 15:45 11/24/17 15:46 DC 11/24/17 16:29 150 ML ED Course 1140: Past medical records reviewed. The patient was evaluated in room A2. A complete history and physical examination was performed. 1202: I checked on the patient. 1324: Case management spoke with the patient who reports that the patient seems demented. Per case management, the patient's is okay with taking the patient home. 1430: The nurse disimpacted the patient. 1555: Upon reevaluation, the patient appeared to have improvement of her symptoms. I discussed findings with the patient and her . Her stated that earlier he gave the patient a dose of Clonazepam and her Parkinson' s medications. They verbalized agreement of the treatment plan. She was discharged home. Medical Decision The patient is a 72 year old female who presents to the ED with complaints of constipation. Differentials include constipation, UTI, dementia, anxiety, situational stressors, and unsafe living environment. This patient was evaluated and appeared to be anxious but in no distress. Physical examination is fairly unrevealing. Patient's did give her scheduled afternoon medications while in the emergency department including clonazepam, which helped her anxiety significantly. KUB x-ray was performed and reveals evidence of fecal stasis. A soapsuds enema was given by nursing. The patient did require some fecal disimpaction. She had at least a small to moderate bowel movement after a second enema. The patient had been in the emergency department for multiple hours through this process. The patient has been referred to be discharged for management. She was given a bottle of magnesium citrate. She was advised to drink half of the bottle this evening and if no BM by morning, drink the rest of the bottle. They will continue MiraLAX 1-2 times daily as needed for BM. He will increase the fiber and water in the patient's diet. I suspect much of her constipation is related to her Parkinson's disease and minimal mobility. Patient was advised to follow-up with her PCP this week. They will return to the ED for worsening symptoms or any concerns. Medication Reconcilliation Current Medication List: was personally reviewed by me Blood Pressure Screening Patient's blood pressure: Normal blood pressure Impression Primary Impression: Constipation Additional Impressions: Anxiety Parkinson disease Scribe Attestation The scribe's documentation has been prepared under my direction and personally reviewed by me in its entirety. I confirm that the note above accurately reflects all work, treatment, procedures, and medical decision making performed by me. Departure Information Dispostion Home / Self-Care Referrals Richie Johnson M.D. (PCP) Forms HOME CARE DOCUMENTATION FORM, IMPORTANT VISIT INFORMATION, WORK / SCHOOL INSTRUCTIONS Patient Instructions Constipation, My [facility] Additional Instructions Diagnosis: Constipation Magnesium citrate one half bottle upon return home. If no BM prior to bed this evening, repeat the magnesium citrate in the morning. Increase the water and fiber in your diet. MiraLAX 1 capful 1-2 times daily as needed for a bowel movement. Follow-up with your primary care physician this week for reevaluation. Return to the emergency department for worsening of symptoms or any medical concerns. Problem Qualifiers
[2017-11-24 11:59] LABS: BASO % 0.4 %; BASO ABS # 0.04 K/uL (0-0.2); EOS % 1.3 %; EOS ABS # 0.12 K/uL (0-0.5); HEMATOCRIT 35.8 % (37-47); HEMOGLOBIN 11.9 g/dL (12.0-16.0); IG# 0.03 K/uL (0.00-0.02); LYMPH ABS # 2.77 K/uL (1.2-3.4); MEAN CORPUSCULAR HEMOGLOBIN 30.6 pg (25-34); MEAN CORPUSCULAR HGB CONC 33.2 g/dl (32-36); MEAN PLATELET VOLUME 10.4 fL (7.4-10.4); MONO % 5.4 %; MONO ABS # 0.52 K/uL (0.11-0.59); NEUT % 63.6 %; NEUT ABS # 6.07 K/uL (1.4-6.5); PLATELET COUNT 230 K/uL (130-400); RED CELL DISTRIBUTION WIDTH CV 14.3 % (11.5-14.5); RED CELL DISTRIBUTION WIDTH SD 47.8 fL (36.4-46.3); WHITE BLOOD COUNT 9.55 K/uL (4.8-10.8)
[2017-11-24 12:37] LABS: ALBUMIN 3.6 gm/dl (3.4-5.0); CALCIUM 9.1 mg/dl (8.5-10.1); CREATININE 0.66 mg/dl (0.60-1.20); POTASSIUM 3.8 mmol/L (3.5-5.1); TOTAL PROTEIN 7.1 gm/dl (6.4-8.2)
--- NOTE | 2017-11-24 13:00 | DIAGNOSTIC IMAGING REPORT ---
HELLEN CLINICAL HISTORY: constipation pain COMPARISON STUDY: No previous studies for comparison. FINDINGS: Increased fecal load throughout the entire colon. This consistent with fecal stasis. Mild fecal impaction. IMPRESSION: Mild fecal impaction. Increased fecal load throughout the entire colon consistent with fecal stasis. The above report was generated using voice recognition software. It may contain grammatical, syntax or spelling errors. Electronically signed by: Richie Evans M.D. 11/24/2017 12:59 PM Dictated Date/Time: 11/24/2017 12:59 PM
[2017-11-24] MEDS ORDERED: SOAP SUDS ENEMA PR STA (13:23)
[2017-11-24 14:42] VITALS: PULSE 92
[2017-11-24] MEDS ORDERED: MAGNESIUM CITRATE 296 ML/BTL PO STA (15:45)
[2017-11-24 16:30] VITALS: BP 97/64; O2SAT 98
[2017-11-25] MEDS ORDERED: ASPI81TA28 PO (06:32)
[2017-11-25] MEDS ORDERED: COEN1CAP17 PO (09:36)
[2017-11-25] MEDS ORDERED: KLN/5 PO (14:19)
[2017-11-25] MEDS ORDERED: EFFSR150 PO (14:19)
[2017-11-25] MEDS ORDERED: CHOL400T PO (14:19)
[2017-11-25] MEDS ORDERED: MULT-307 PO (14:19)
[2017-11-25] MEDS ORDERED: ZYP25 PO (14:19)
[2017-11-25] MEDS ORDERED: FSM70 PO (16:17)
[2017-11-25] MEDS ORDERED: CLON0.5T9 PO (16:17)
[2017-11-25] MEDS ORDERED: CARB25TA14 PO (17:51)
== END 2017-11-24 16:31 | disposition home or self-care (01) ==
LOC: EDBD 10:47 → C.EDA 10:48
DX: K59.00 Constipation, unspecified (principal); F41.9 Anxiety disorder, unspecified; G20 Parkinson's disease; Z79.82 Long term (current) use of aspirin; Z88.8 Allergy status to other drugs, medicaments and biological substances; Z88.2 Allergy status to sulfonamides

== ENCOUNTER 2017-11-25 15:15 | Emergency (ER) | payer OTHER ==
[~2017-11-25] VITALS: Ht 162.6 cm; Wt 50.0 kg
[~2017-11-25 15:15] MED LIST changes: +ASPI81TA28 PO; +CHOL400T PO; +COEN1CAP17 PO; +EFFSR150 PO; +MULT-307 PO; +ZYP25 PO
[2017-11-25 15:18] VITALS: TEMP 36.4; Ht 162.6 cm; Wt 50.0 kg
--- NOTE | 2017-11-25 15:39 | EMERGENCY ROOM VISIT NOTE ---
History Report prepared by Steffen: Eyal Santana Under the Supervision of: Dr. Alexis Chávez M.D. First contact with patient: 15:30 Chief Complaint: CONSTIPATION Stated Complaint: POSSIBLE BOWEL OBSTRUCTION,CONSTIPATION History of Present Illness The patient is a 72 year old female with a past medical history of Parkinson's disease who presents to the ED with a cc of intermittent constipation beginning today. The patient reports that she was in the ED yesterday and was given two enemas to help with the constipation. The patient states that she has been producing flatulence and that she normally keeps active. Negative abdominal pain, taking narcotic medicine and fevers. Source of History: patient Onset: Today Position: abdomen Quality: other (Constipation) Timing: intermittent Associated Symptoms: No fevers, No abdominal pain Review of Systems See HPI for pertinent positives and negatives. A total of ten systems were reviewed and were otherwise negative. Past Medical & Surgical Medical Problems: (1) Parkinson's disease Family History Lung disease Social History Smoking Status: Never Smoker Marital Status: Housing Status: lives with family Occupation Status: employed Current/Historical Medications Scheduled Alendronate Sodium (Alendronate Sodium), 70 MG PO WK Aspirin (Aspirin Ec), 81 MG PO DAILY Carbidopa/Levodopa (Sinemet 25MG/250MG), 1 TAB PO QID Cholecalciferol (Vitamin D), 400 INTER.UNIT PO QPM Clonazepam (Klonopin), 0.5 MG PO HS Coenzyme Q10 (Ubidecarenone) (Co Q 10), 100 MG PO QAM Multiple Vitamins W/ Minerals (One Daily Complete), 1 TAB PO DAILY Olanzapine (Olanzapine), 1.25 MG PO AMPM Venlafaxine Hcl (Effexor Extended Rel), 150 MG PO QAM Scheduled PRN Clonazepam (Klonopin), 0.25 MG PO BID PRN for Anxiety Allergies Coded Allergies: Gabapentin (Verified Allergy, Unknown, INCREASED TREMORS, ANXIETY/ DEPRESSION, 11/17/17) Sulfa Antibiotics (Verified Allergy, Unknown, ITCH, 11/17/17) Physical Exam Vital Signs Date Time Temp Pulse Resp B/P (MAP) Pulse Ox O2 Delivery O2 Flow Rate FiO2 11/25/17 15:18 36.4 78 18 97/66 98 Room Air Physical Exam GENERAL: Awake, alert, well-appearing, NAD, wearing glasses HENT: Normocephalic, atraumatic. EYES: Normal conjunctiva. Sclera non-icteric. PERRL. No anisocoria. NECK: Supple. No nuchal rigidity. FROM. RESPIRATORY: CTAB, no rhonchi, wheezing, crackles CARDIAC: RRR, no MRG ABDOMEN: Soft, NTND, BS+, not peritonitic MSK: No chest wall TTP, no LE edema NEURO: GCS 15, CN 2-12 intact, moves all 4s on command SKIN: No rash or jaundice noted. Medical Decision & Procedures ER Provider Diagnostic Interpretation: Radiology results as stated below per my review and radiologist interpretation: KUB CLINICAL HISTORY: Constipation. FINDINGS: 2 AP, portable, supine abdominal radiographs are compared to study dated 11/24/2017 and correlated with abdominal CT dated 11/17/2017. There is a nonobstructed abdominal bowel gas pattern noting mild colonic fecal retention. Fecal burden appears decreased from yesterday. No evidence of intraperitoneal free air is seen on these supine images. There are no abnormal abdominal calcifications. The skeletal structures are osteopenic. Advanced lumbosacral spondylosis and scoliosis are observed. IMPRESSION: 1. Nonobstructed abdominal bowel gas pattern. 2. Fecal burden appears decreased from yesterday. Electronically signed by: Asher Lima M.D. 11/25/2017 4:23 PM Dictated Date/Time: 11/25/2017 4:22 PM Medications Administered Medications (Trade) Dose Ordered Sig/Greg Route Start Time Stop Time Status Last Admin Dose Admin Senna/Docusate Sodium (Senokot S Tab) 1 tab NOW ONCE PO 11/25/17 16:00 11/25/17 16:01 DC 11/25/17 15:58 1 TAB Lactulose (Chronulac Syrup) 30 gm NOW STAT PO 11/25/17 15:46 11/25/17 15:48 DC 11/25/17 15:57 30 GM Metoclopramide HCl (Reglan Tab) 10 mg NOW ONCE PO 11/25/17 16:00 11/25/17 16:01 DC 11/25/17 15:58 10 MG ED Course 1535: The patient was evaluated in room A10. A complete history and physical exam was performed. 1712: I reevaluated the patient. Discussed results and discharge instructions: She verbalized understanding and agreement. The patient is ready for discharge. Medical Decision Nursing notes reviewed. Ancillary studies and prior records reviewed. The patient is a 72 year old female with a past medical history of Parkinson's disease who presents to the ED with a cc of intermittent constipation beginning today. Differential diagnosis: Etiologies such as appendicitis, diverticulitis, PUD, biliary pathology, UTI, pancreatitis, obstruction, mesenteric ischemia, aortic pathology, infections, inflammatory bowel disease, renal colic, as well as others were entertained. Patient was seen and evaluated the bedside. Patient was recently seen and evaluated in the emergency department. The patient did receive 2 enemas yesterday and did have a fecal impaction. The patient upon her second enema did have a regular bowel movement. The patient did return as the was concerned that she did not have a bowel movement yet today. This is been less than 24 hours and the patient denies any abdominal pain, nausea, vomiting, or fevers. Patient has not been obstipated and has been passing gas. The patient has a nonfocal abdominal exam and the patient is not peritonitic. Patient did have a KUB completed and was given some medications to help with having a bowel movement. The patient declined an enema today. KUB was unremarkable. I did discuss with the patient as well as the patient's family member that not having a bowel movement every day is not necessarily an acute problem. I did say that if the patient has fever, chills, cannot pass gas , severe abdominal pain or there is a something that does not seem right the could return for further evaluation. Patient was given additional recommendations to help have regular bowel movements. Patient was given strict follow-up, discharge, and return precautions. All questions were answered. Patient was deemed suitable for outpatient follow-up at this time. Patient agreed with the plan of care and was safely discharged home. Medication Reconcilliation Current Medication List: was personally reviewed by me Blood Pressure Screening Patient's blood pressure: Elevated blood pressure Blood pressure disposition: Referred to PCP Impression Primary Impression: Constipation Scribe Attestation The scribe's documentation has been prepared under my direction and personally reviewed by me in its entirety. I confirm that the note above accurately reflects all work, treatment, procedures, and medical decision making performed by me. Departure Information Dispostion Home / Self-Care Referrals Richie Johnson M.D. (PCP) Forms HOME CARE DOCUMENTATION FORM, IMPORTANT VISIT INFORMATION Patient Instructions Constipation, Diet High Fiber Dc, My [facility] Additional Instructions Please return to the emergency department if you have worsening or recurrent symptoms not amenable to at-home treatment. Please call for a follow-up appointment with her primary care physician. Please take your medications as prescribed. If you have other concerns and/or complaints please feel free to also call your primary care physician's office or return the ED for further evaluation, management, and treatment. Take your medications as prescribed. For constipation please consider hydrating liberally with clear liquids, high- fiber diet, leafy greens. Please avoid antihistamines and narcotic medications. You may also consider stool softeners like docusate and senna, laxatives like magnesium citrate or lactulose, suppositories, and/or enemas. You have been examined and treated today on an emergency basis only. This is not a substitute for, or an effort to provide, complete comprehensive medical care. It is impossible to recognize and treat all injuries or illnesses in a single emergency department visit. It is therefore important that you follow up closely with [facility], your PCP, and/or your specialist(s). Call as soon as possible for an appointment. Thank you for your time and consideration. I look forward to speaking with you again soon. Please don't hesitate to call us if you have any questions.
[2017-11-25] MEDS ORDERED: LACTULOSE SYRUP 20 GM/30 ML UDC PO STA (15:46)
[2017-11-25] MEDS ORDERED: DOCUSATE SODIUM/SENNA 50/8.6MG TAB PO ONE (16:00)
[2017-11-25] MEDS ORDERED: METOCLOPRAMIDE HCL 5 MG TAB PO ONE (16:00)
[2017-11-25] MEDS ORDERED: FSM70 PO (16:17)
[2017-11-25] MEDS ORDERED: CLON0.5T9 PO (16:17)
--- NOTE | 2017-11-25 16:24 | DIAGNOSTIC IMAGING REPORT ---
KUB CLINICAL HISTORY: Constipation. FINDINGS: 2 AP, portable, supine abdominal radiographs are compared to study dated 11/24/2017 and correlated with abdominal CT dated 11/17/2017. There is a nonobstructed abdominal bowel gas pattern noting mild colonic fecal retention. Fecal burden appears decreased from yesterday. No evidence of intraperitoneal free air is seen on these supine images. There are no abnormal abdominal calcifications. The skeletal structures are osteopenic. Advanced lumbosacral spondylosis and scoliosis are observed. IMPRESSION: 1. Nonobstructed abdominal bowel gas pattern. 2. Fecal burden appears decreased from yesterday. Electronically signed by: Asher Lima M.D. 11/25/2017 4:23 PM Dictated Date/Time: 11/25/2017 4:22 PM
[2017-11-25 17:03] VITALS: BP 133/91; PULSE 82; O2SAT 100
[2017-11-25] MEDS ORDERED: CARB25TA14 PO (17:51)
== END 2017-11-25 17:04 | disposition home or self-care (01) ==
LOC: C.EDB 15:16 → C.EDA 17:04
DX: K59.00 Constipation, unspecified (principal); G20 Parkinson's disease; Z79.82 Long term (current) use of aspirin; Z79.899 Other long term (current) drug therapy; Z88.8 Allergy status to other drugs, medicaments and biological substances; Z88.2 Allergy status to sulfonamides

== ENCOUNTER 2018-04-13 14:30 | Inpatient (IN) ==
[2018-04-13] MEDS ORDERED: PIPERACILL/TAZOBAC CONSULT ACTIVE PRN ×2 (14:46→17:09)
[2018-04-13] MEDS ORDERED: VANCOMYCIN HCL 750 MG in SODIUM CHLORIDE 0.9% 500 ML IV ONE (14:46)
[2018-04-13] MEDS ORDERED: VANCOMYCIN CONSULT ACTIVE PRN (14:46)
[2018-04-13] MEDS ORDERED: PIPERACILLIN/TAZOBACTAM 4.5 GM/120 ML BAG IV ONE (14:46)
[2018-04-13] MEDS ORDERED: SODIUM CHLORIDE 0.9% 1000ML 1,000 ML IV ONE (14:49)
--- NOTE | 2018-04-13 15:11 | XRay Report ---
XR chest 1V portable HISTORY: Sepsis COMPARISON: Chest 03/22/2018. FINDINGS: The heart is normal in size. No pleural effusions. No pneumothorax. Mild diffuse interstiti al thickening which is likely chronic. No new focal lung consolidations. Small nodular density within left upper lobe corresponds the left anterior third rib. This remains unchanged. IMPRESSION: No significant change compared to the prior study. No acute process. Electronically signed by: Jerson Davis M.D. 04/13/2018 3:10 PM
[2018-04-13 15:21] LABS: INR 1.2 (0.9-1.1); Partial Thromboplastin Ratio 0.8; Prothrombin Time 11.9 Seconds (9.0-12.0)
--- NOTE | 2018-04-13 15:28 | CT Scan Report ---
CT head/brain wo con CLINICAL HISTORY: 72 years-old Female presenting with ams. TECHNIQUE: Multidetector CT imaging of the head was performed without the use of intravenous contrast . IV contrast: None. A dose lowering technique was used consistent with the principles of ALARA (as l ow as reasonably achievable). COMPARISON: 02/01/2018. CT DOSE (mGy.cm): The estimated cumulative dose is 729.78 mGycm. FINDINGS: Financial Planning Advisor topogram: Unremarkable. Ventricles and sulci normal in size. No hemorrhage. Brain parenchyma normal in appearance with preser jeni smyth-white differentiation. No acute territorial infarct. No mass effect or midline shift. No ext ra-axial fluid collection. Paranasal sinuses and mastoid air cells clear. Calvarium intact. IMPRESSION: 1. No acute intracranial abnormality. Electronically signed by: Charles Coburn M.D. 04/13/2018 3:27 PM
[2018-04-13] MEDS ORDERED: ACETAMINOPHEN IV ONE (15:30)
[2018-04-13 15:35] LABS: Alanine Aminotransferase 20 U/L (12-78); Albumin Level 3.2 gm/dl (3.4-5.0); Aspartate Aminotransferase 67 U/L (15-37); BUN Creatinine Ratio 48.2 (10-20); Blood Urea Nitrogen 92 mg/dl (7-18); Calcium 9.1 mg/dl (8.5-10.1); Carbon Dioxide 29 mmol/L (21-32); Chloride 135 mmol/L (98-107); Est GFR (African American) 30.2; Est GFR (Non-African American) 26.1; Glucose 144 mg/dl (70-99); Magnesium 3.4 mg/dl (1.8-2.4); Potassium 4.1 mmol/L (3.5-5.1); Sodium 170 mmol/L (136-145)
[2018-04-13 15:41] LABS: Albumin Globulin Ratio 0.7 (0.9-2); Alkaline Phosphatase 99 U/L (45-117); Bilirubin,Total 1.6 mg/dl (0.1-1); Globulin 4.9 gm/dl (2.5-4.0); Total Protein 8.1 gm/dl (6.4-8.2)
[2018-04-13 15:51] LABS: Basophils # (auto) 0.04 K/uL (0-0.2); Basophils % (auto) 0.3 %; Eosinophils # (auto) 0.03 K/uL (0-0.5); Eosinophils % (auto) 0.2 %; Hematocrit (blood only) 41.7 % (37-47); Hemoglobin 12.2 g/dL (12.0-16.0); Immature Granulocytes # (auto) 0.04 K/uL (0.00-0.02); Immature Granulocytes % (auto) 0.3 %; Lymphocytes # (auto) 1.62 K/uL (1.2-3.4); Lymphocytes % (auto) 11.8 %; Mean Corpuscular Hgb Conc 29.3 g/dL (32-36); Mean Corpuscular Volume 97.9 fL (80-100); Mean Platelet Volume 12.9 fL (7.4-10.4); Monocytes # (auto) 0.48 K/uL (0.11-0.59); Monocytes % (auto) 3.5 %; Neutrophils % (auto) 83.9 %; Platelet Count 348 K/uL (130-400); RDW Coefficient of Variation 19.6 % (11.5-14.5); RDW Standard Deviation 69.9 fL (36.4-46.3); Red Blood Count 4.26 M/uL (4.2-5.4); White Blood Count 13.71 K/uL (4.8-10.8)
[2018-04-13 16:02] LABS: Partial Thromboplastin Time 19.7 Seconds (21.0-31.0)
[2018-04-13 16:24] LABS: Appearance Urine Turbid (Clear); Bacteria Urine Automated 2+ (Negative); Color Urine Dark Yellow; Epithelial Cell Urine Auto >30 /lpf (0-5); Glucose Urine UA Negative (Negative); Ketones Urine Trace (Negative); Leukocyte Esterase Urine 2+ (Negative); Nitrite Urine Positive (Negative); Protein Urine Trace (Negative); Specific Gravity Urine 1.026 (1.000-1.030); Urobilinogen Urine Negative (Negative); WBC Urine Automated >30 /hpf (0-5)
[2018-04-13 16:33] LABS: Bilirubin Urine 1+ (Negative)
[2018-04-13] MEDS ORDERED: ACETAMINOPHEN 65 ML IV ONE ×2 (16:42→16:44)
--- NOTE | 2018-04-13 16:57 | Emergency Department Note ---
Entered by Carloz Larkin acting as a scribe for Junior Choudhury M.D. History of Present Illness General Chief complaint: Unresponsive Source: family () Limitations: altered mental status History of Present Illness Onset (ago): unknown (prior to arrival) Location: head (global) Quality: + other (hypoxia and unresponsiveness) Associated symptoms: + other (currently febrile) History is limited due to cognitive status. The patient is a 72 year old female who presents to the Emergency Room from [facility] with hypoxia and unresponsiveness beginning prior to arrival. The reports that he received a call from [facility], stating that the patient was hypoxic and unresponsive. He states that she does not usually wear supplemental oxygen. He notes that the patient can be given antibiotics, but she is DNR. He reports that the patient received a chest x-ray at the beginning of the week. The patient is currently febrile. Home Medications Home Medications Medication Instructions Recorded Confirmed Type alendronate 70 mg PO WK 02/01/18 04/13/18 History aspirin [Aspir-81] 81 mg PO QDL 02/01/18 04/13/18 History carbidopa-levodopa 1 tab PO QID 02/01/18 04/13/18 History cholecalciferol (vitamin D3) 400 unit PO DAILY 02/01/18 04/13/18 History [Vitamin D3] clonazepam 0.25 mg PO DIRECTED 02/01/18 04/13/18 History clonazepam 0.5 mg PO HS 02/01/18 04/13/18 History multivitamin with minerals [One 1 tab PO QDL 02/01/18 04/13/18 History Daily Complete] olanzapine 1.25 mg PO TID 02/01/18 04/13/18 History venlafaxine 150 mg PO QAM 02/01/18 04/13/18 History coenzyme Q10 [Co Q-10] 100 mg PO DAILY 03/21/18 04/13/18 History donepezil [Aricept] 5 mg PO HS 03/21/18 04/13/18 History ondansetron 4 mg TRANSLINGUAL Q8 PRN 03/21/18 04/13/18 History metoprolol tartrate 12.5 mg PO BID 30 Days #30 tab 03/26/18 04/13/18 Rx pantoprazole 40 mg PO BID 30 Days #60 tab 03/26/18 04/13/18 Rx polyethylene glycol 3350 [Miralax] 17 g PO DAILY PRN 30 Days #30 ea 03/26/18 Rx sennosides-docusate sodium [Senna 1 tab PO BID 30 Days #60 tab 03/26/18 Rx with Docusate Sodium] acetaminophen [Tylenol] 650 mg PO Q6H PRN 04/13/18 04/13/18 History bisacodyl [Dulcolax (bisacodyl)] 10 mg GA DAILY PRN 04/13/18 04/13/18 History oxycodone 5 mg PO Q6H PRN 04/13/18 04/13/18 History oxycodone 10 mg PO Q6H PRN 04/13/18 04/13/18 History Allergies Allergy/AdvReac Type Severity Reaction Status Date / Time gabapentin Allergy Unknown INCREASED Verified 04/13/18 16:01 TREMORS, ANXIETY/DEPRESSION Sulfa (Sulfonamide Allergy Unknown ITCH Verified 04/13/18 16:01 Antibiotics) Past Med/Surg History Medical History Depression (Chronic) Osteoporosis (Chronic) Dementia (Chronic) Parkinson's disease (Chronic) Surgical History History of colonoscopy (Chronic) History of hammer toe correction (Resolved) Social History marital status: Current Living Situation: Spouse current occupational status: unemployed Feels Safe at Home: Yes Smoking Status: Smoker, status unknown Hx Alcohol Use: No Hx Substance Use: No Beliefs That Will Affect Care: Hoahaoism Hoahaoism Beliefs: Zoroastrian Preferred Language: Guyanese Review of Systems Unobtainable due to reduced consciousness Physical Exam Vital Signs Vital Signs - 24 hr 04/13/18 14:30 04/13/18 15:30 04/13/18 16:08 Temperature 39 C H Temperature Source Rectal Sepsis Recent Fever Within 48 Hours Yes Sepsis New/Unexplained Change in Mental Status No Sepsis Action Taken by Nursing No Action Required Pulse Rate 139 H Pulse Rate [Finger] 131 H 129 H Respiratory Rate 34 H 22 24 Respiratory Effort / Characteristics Accessory Muscle Use Respiratory Pattern Rapid/Shallow Blood Pressure 100/82 Blood Pressure [Left Arm] 150/119 H 128/89 Blood Pressure Mean 88 Blood Pressure Mean [Left Arm] 129 102 Blood Pressure Position [Left Arm] Lying Pulse Oximetry 100 96 95 Oxygen Delivery Method Non-rebreather Nasal Cannula Aerosol Mask Oxygen Flow Rate 15 15 15 04/13/18 16:34 04/13/18 16:57 Temperature 38.0 C H Temperature Source Rectal Sepsis Recent Fever Within 48 Hours Sepsis New/Unexplained Change in Mental Status Sepsis Action Taken by Nursing Pulse Rate Pulse Rate [Finger] 122 H 126 H Respiratory Rate 22 24 Respiratory Effort / Characteristics Respiratory Pattern Blood Pressure Blood Pressure [Left Arm] 120/78 111/88 Blood Pressure Mean Blood Pressure Mean [Left Arm] 92 95 Blood Pressure Position [Left Arm] Lying Pulse Oximetry 100 92 Oxygen Delivery Method Aerosol Mask Aerosol Mask Oxygen Flow Rate 15 15 GENERAL: Unresponsive, chronically ill-appearing, lying on right side with non- rebreather in place. HENT: Normocephalic, atraumatic. EYES: Pupils are 6 mm on the right and 5 mm on the left. Normal conjunctiva. Sclera non-icteric. NECK: Supple. No nuchal rigidity. RESPIRATORY: Bibasilar crackles. No wheezes. Normal respiratory effort. CARDIAC: Tachycardic rate. Normal rhythm. Extremities warm and well perfused. Decreased capillary refill. GI: Soft, non-distended. No tenderness to palpation. No masses. RECTAL: Deferred. MUSCULOSKELETAL: Atraumatic. Chest examination reveals no tenderness. There is no CVA tenderness to palpation. LOWER EXTREMITIES: Calves are equal size bilaterally and non-tender. No edema NEURO: Minimal response to painful stimuli, minimal withdrawal to pain in all four limbs. SKIN: Warm and dry. No jaundice noted. Course 1433: Past medical records reviewed. The patient was evaluated in room B1, and a complete history and physical examination were performed. 1602: I consulted Holly Fisher PA-C: [facility]. She will reevaluate the patient for hospitalization. 1606: I discussed the patients case with the host/hostess head. Consultations Consultation #1: I consulted Holly Fisher PA-C: [facility]. She will reevaluate the patient for hospitalization. Time: 16:02 Consultation #2: I discussed the patients case with the host/hostess head. Time: 16:06 Administered Medications Vancomycin HCl 750 mg/ Sodium (Chloride) 515 mls @ 200 mls/hr IV NOW ONE Stop: 04/13/18 17:15 Last Admin: 04/13/18 16:46 Dose: 200 mls/hr Discontinued Medications Piperacillin Sod/Tazobactam Sod (Zosyn) 4.5 gm in 120 mls @ 240 mls/hr IV NOW ONE Stop: 04/13/18 15:15 Last Infusion: 04/13/18 16:46 Dose: 0 mls/hr Admin: 04/13/18 15:59 Dose: 240 mls/hr Sodium Chloride (Nss 1000ml) 1,000 mls @ 999 mls/hr IV .Q1H1M ONE Stop: 04/13/18 15:49 Last Admin: 04/13/18 14:57 Dose: 999 mls/hr Acetaminophen (Ofirmev) 55 mls @ 220 mls/hr IV ONE ONE Stop: 04/13/18 15:44 Last Infusion: 04/13/18 16:07 Dose: 0 mls/hr Admin: 04/13/18 15:34 Dose: 220 mls/hr Acetaminophen (Ofirmev) 65 mls @ 200 mls/hr IV NOW ONE Stop: 04/13/18 17:03 Last Admin: 04/13/18 17:07 Dose: 200 mls/hr Medical Decision Making Differential Diagnosis Differential diagnosis: Etiologies such as sepsis, UTI, pneumonia, bacteremia, metabolic process, electrolyte abnormalities, cardiac sources, intracerebral event, intra- abdominal process, toxicological process, neurologic process, as well as others were entertained. Medical Records Attestation: I reviewed the patient's medical records. Home Medications Current Medication List: was personally reviewed by me Laboratory Data Attestation: I reviewed the patient's lab results. Result diagrams: 04/13/18 14:50 04/13/18 14:50 Lab Results 04/13/18 04/13/18 04/13/18 Range/Units 14:50 14:50 14:50 WBC 13.71 H (4.8-10.8) K/uL RBC 4.26 (4.2-5.4) M/uL Hgb 12.2 (12.0-16.0) g/dL Hct 41.7 (37-47) % MCV 97.9 (80-100) fL MCH 28.6 (25-34) pg MCHC 29.3 L (32-36) g/dL RDW Std Deviation 69.9 H (36.4-46.3) fL RDW Coeff of Noam 19.6 H (11.5-14.5) % Plt Count 348 (130-400) K/uL MPV 12.9 H (7.4-10.4) fL Immature Gran % (Auto) 0.3 % Neut % (Auto) 83.9 % Lymph % (Auto) 11.8 % [place] % (Auto) 3.5 % Eos % (Auto) 0.2 % Baso % (Auto) 0.3 % Immature Gran # (Auto) 0.04 H (0.00-0.02) K/uL Neut # (Auto) 11.50 H (1.4-6.5) K/uL Lymph # (Auto) 1.62 (1.2-3.4) K/uL [place] # (Auto) 0.48 (0.11-0.59) K/uL Eos # (Auto) 0.03 (0-0.5) K/uL Baso # (Auto) 0.04 (0-0.2) K/uL PT 11.9 (9.0-12.0) Seconds INR 1.2 H (0.9-1.1) APTT 19.7 L (21.0-31.0) Seconds PTT Ratio 0.8 Sodium 170 H* (136-145) mmol/L Potassium 4.1 (3.5-5.1) mmol/L Chloride 135 H (98-107) mmol/L Carbon Dioxide 29 (21-32) mmol/L Anion Gap 7.0 (3-11) BUN 92 H (7-18) mg/dl Creatinine 1.90 H (0.6-1.2) mg/dl Est Cr Clr Drug Dosing Not Reportable Est GFR ( Amer) 30.2 Est GFR (Non-Af Amer) 26.1 BUN/Creatinine Ratio 48.2 H (10-20) Glucose 144 H (70-99) mg/dl Osmolality (280-300) mOsm/kg POC Lactic Acid Michael (0.90-1.70) mmol/L Calcium 9.1 (8.5-10.1) mg/dl Magnesium 3.4 H (1.8-2.4) mg/dl Total Bilirubin 1.6 H (0.1-1) mg/dl AST 67 H (15-37) U/L ALT 20 (12-78) U/L Alkaline Phosphatase 99 (45-117) U/L Troponin I (0-0.045) ng/ml Total Protein 8.1 (6.4-8.2) gm/dl Albumin 3.2 L (3.4-5.0) gm/dl Globulin 4.9 H (2.5-4.0) gm/dl Albumin/Globulin Ratio 0.7 L (0.9-2) TSH 2.100 (0.300-4.500) uIu/ml Urine Color Urine Appearance (Clear) Urine pH (4.5-7.5) Ur Specific [place] (1.000-1.030) Urine Protein (Negative) Urine Glucose (UA) (Negative) Urine Ketones (Negative) Urine Blood (Negative) Urine Nitrite (Negative) Urine Bilirubin (Negative) Urine Urobilinogen (Negative) Ur Leukocyte Esterase (Negative) Urine WBC (Auto) (0-5) /hpf Urine RBC (Auto) (0-4) /hpf U Hyaline Cast (Auto) (0-5) /lpf U Epithel Cells (Auto) (0-5) /lpf Urine Bacteria (Auto) (Negative) Urine Osmolality (500-800) mOsm/kg 04/13/18 04/13/18 04/13/18 Range/Units 14:50 14:56 15:30 WBC (4.8-10.8) K/uL RBC (4.2-5.4) M/uL Hgb (12.0-16.0) g/dL Hct (37-47) % MCV (80-100) fL MCH (25-34) pg MCHC (32-36) g/dL RDW Std Deviation (36.4-46.3) fL RDW Coeff of Noam (11.5-14.5) % Plt Count (130-400) K/uL MPV (7.4-10.4) fL Immature Gran % (Auto) % Neut % (Auto) % Lymph % (Auto) % [place] % (Auto) % Eos % (Auto) % Baso % (Auto) % Immature Gran # (Auto) (0.00-0.02) K/uL Neut # (Auto) (1.4-6.5) K/uL Lymph # (Auto) (1.2-3.4) K/uL [place] # (Auto) (0.11-0.59) K/uL Eos # (Auto) (0-0.5) K/uL Baso # (Auto) (0-0.2) K/uL PT (9.0-12.0) Seconds INR (0.9-1.1) APTT (21.0-31.0) Seconds PTT Ratio Sodium (136-145) mmol/L Potassium (3.5-5.1) mmol/L Chloride (98-107) mmol/L Carbon Dioxide (21-32) mmol/L Anion Gap (3-11) BUN (7-18) mg/dl Creatinine (0.6-1.2) mg/dl Est Cr Clr Drug Dosing Est GFR ( Amer) Est GFR (Non-Af Amer) BUN/Creatinine Ratio (10-20) Glucose (70-99) mg/dl Osmolality 396 H* (280-300) mOsm/kg POC Lactic Acid Michael 4.78 H (0.90-1.70) mmol/L Calcium (8.5-10.1) mg/dl Magnesium (1.8-2.4) mg/dl Total Bilirubin (0.1-1) mg/dl AST (15-37) U/L ALT (12-78) U/L Alkaline Phosphatase (45-117) U/L Troponin I (0-0.045) ng/ml Total Protein (6.4-8.2) gm/dl Albumin (3.4-5.0) gm/dl Globulin (2.5-4.0) gm/dl Albumin/Globulin Ratio (0.9-2) TSH (0.300-4.500) uIu/ml Urine Color Dark Yellow Urine Appearance Turbid H (Clear) Urine pH 5.0 (4.5-7.5) Ur Specific [place] 1.026 (1.000-1.030) Urine Protein Trace H (Negative) Urine Glucose (UA) Negative (Negative) Urine Ketones Trace H (Negative) Urine Blood Trace H (Negative) Urine Nitrite Positive H (Negative) Urine Bilirubin 1+ H (Negative) Urine Urobilinogen Negative (Negative) Ur Leukocyte Esterase 2+ H (Negative) Urine WBC (Auto) >30 H (0-5) /hpf Urine RBC (Auto) 5-10 H (0-4) /hpf U Hyaline Cast (Auto) 1-5 (0-5) /lpf U Epithel Cells (Auto) >30 H (0-5) /lpf Urine Bacteria (Auto) 2+ H (Negative) Urine Osmolality (500-800) mOsm/kg 04/13/18 04/13/18 Range/Units 15:30 16:36 WBC (4.8-10.8) K/uL RBC (4.2-5.4) M/uL Hgb (12.0-16.0) g/dL Hct (37-47) % MCV (80-100) fL MCH (25-34) pg MCHC (32-36) g/dL RDW Std Deviation (36.4-46.3) fL RDW Coeff of Noam (11.5-14.5) % Plt Count (130-400) K/uL MPV (7.4-10.4) fL Immature Gran % (Auto) % Neut % (Auto) % Lymph % (Auto) % [place] % (Auto) % Eos % (Auto) % Baso % (Auto) % Immature Gran # (Auto) (0.00-0.02) K/uL Neut # (Auto) (1.4-6.5) K/uL Lymph # (Auto) (1.2-3.4) K/uL [place] # (Auto) (0.11-0.59) K/uL Eos # (Auto) (0-0.5) K/uL Baso # (Auto) (0-0.2) K/uL PT (9.0-12.0) Seconds INR (0.9-1.1) APTT (21.0-31.0) Seconds PTT Ratio Sodium (136-145) mmol/L Potassium (3.5-5.1) mmol/L Chloride (98-107) mmol/L Carbon Dioxide (21-32) mmol/L Anion Gap (3-11) BUN (7-18) mg/dl Creatinine (0.6-1.2) mg/dl Est Cr Clr Drug Dosing Est GFR ( Amer) Est GFR (Non-Af Amer) BUN/Creatinine Ratio (10-20) Glucose (70-99) mg/dl Osmolality (280-300) mOsm/kg POC Lactic Acid Michael (0.90-1.70) mmol/L Calcium (8.5-10.1) mg/dl Magnesium (1.8-2.4) mg/dl Total Bilirubin (0.1-1) mg/dl AST (15-37) U/L ALT (12-78) U/L Alkaline Phosphatase (45-117) U/L Troponin I 0.072 H* (0-0.045) ng/ml Total Protein (6.4-8.2) gm/dl Albumin (3.4-5.0) gm/dl Globulin (2.5-4.0) gm/dl Albumin/Globulin Ratio (0.9-2) TSH (0.300-4.500) uIu/ml Urine Color Urine Appearance (Clear) Urine pH (4.5-7.5) Ur Specific [place] (1.000-1.030) Urine Protein (Negative) Urine Glucose (UA) (Negative) Urine Ketones (Negative) Urine Blood (Negative) Urine Nitrite (Negative) Urine Bilirubin (Negative) Urine Urobilinogen (Negative) Ur Leukocyte Esterase (Negative) Urine WBC (Auto) (0-5) /hpf Urine RBC (Auto) (0-4) /hpf U Hyaline Cast (Auto) (0-5) /lpf U Epithel Cells (Auto) (0-5) /lpf Urine Bacteria (Auto) (Negative) Urine Osmolality 666 (500-800) mOsm/kg Imaging Data Radiologist's Impression: Radiology results as stated below per my review and the radiologist's interpretation: XR chest 1V portable HISTORY: Sepsis COMPARISON: Chest 03/22/2018. FINDINGS: The heart is normal in size. No pleural effusions. No pneumothorax. Mild diffuse interstitial thickening which is likely chronic. No new focal lung consolidations. Small nodular density within left upper lobe corresponds the left anterior third rib. This remains unchanged. IMPRESSION: No significant change compared to the prior study. No acute process. Electronically signed by: Jerson Davis M.D. 04/13/2018 3:[address] head/brain wo con CLINICAL HISTORY: 72 years-old Female presenting with ams. TECHNIQUE: Multidetector CT imaging of the head was performed without the use of intravenous contrast. IV contrast: None. A dose lowering technique was used consistent with the principles of ALA (as low as reasonably achievable). COMPARISON: 02/01/2018. CT DOSE (mGy.cm): The estimated cumulative dose is 729.78 mGycm. FINDINGS: Television Host topogram: Unremarkable. Ventricles and sulci normal in size. No hemorrhage. Brain parenchyma normal in appearance with preserved smyth-white differentiation. No acute territorial infarct. No mass effect or midline shift. No extra-axial fluid collection. Paranasal sinuses and mastoid air cells clear. Calvarium intact. IMPRESSION: 1. No acute intracranial abnormality. Electronically signed by: Charles Coburn M.D. 04/13/2018 3:27 PM ECG Data Attestation: I personally reviewed and interpreted this ECG as follows: Indication: altered mental status Rate (beats per minute): 140 Rhythm: sinus tachycardia Findings: + RBBB (incomplete), + ST depression (lateral) and + T-wave inversion (diffuse); no PVC Blood Pressure Blood Pressure Findings: Elevated blood pressure Blood Pressure Disposition: further management by hospitalist CHALO Narrative 72-year-old female from [facility] today with history of Parkinson's noted to be hypoxic today and EMS was called. Unresponsive upon arrival there on a nonrebreather with initial pulse ox for EMS of 98. Some slight peripheral cyanosis was noted for EMS she was brought here for further care. Glucose 98. Tachycardic with a sinus rhythm in the 140s. No trauma reported but she is febrile upon arrival here. Pupils are unequal. arrives and states that while she is DNR and would not want CPR intubation he is agreeable and wants her to receive antibiotics and laboratory studies and imaging. Proceeded with chest x-ray to evaluate for possible aspiration CT of the head. Lab work and cultures were obtained. Given fluid resuscitation and started on broad- spectrum vancomycin and Zosyn. By history it appears that she has a history of UTIs and with her Parkinson's concern again for aspiration. Fairly benign abdomen on exam here although she is minimally responsive to painful stimuli. Given Tylenol for fever. Chest x-ray is grossly unchanged but EKG was significant tachycardia possibly having some demand ischemia likely secondary to sepsis. Given her altered mental status and some change in her pupils CT of the head was completed. Hypernatremia significantly noted 170 as well. Did receive a liter of normal saline. CT of the head is unremarkable. Acute kidney injury is also present. Contacted the [facility] hospitalist for admission given her recent discharge from the service about 2 weeks ago. Again wants medical intervention but no CPR or intubation. Impression & Plan Sepsis, Hyponatremia, Acute kidney injury, Altered mental status Critical Care Time I have personally spent 75 minutes of critical care time in the direct management of this patient. This includes bedside care, interpretation of diagnostic studies, and testing, discussion with consultants, patient, and family members, and other required patient management activities. This 75 minutes is in excess of all separately billable procedures. Critical Care Time: Yes Total Critical Care Time: 75 Discharge Plan Visit Data Chief Complaint: Unresponsive ED Provider: Junior Choudhury Discharge Problem: Sepsis, Hyponatremia, Acute kidney injury, Altered mental status Patient Disposition: Being Evaluated by Hospitalist Forms Stand Alone Forms: My [facility] Prescriptions Prescriptions: No Action donepezil [Aricept] 5 mg tablet 5 mg PO HS RF: 0 ondansetron 4 mg tablet,disintegrating 4 mg Translingual Q8 PRN (Reason: Nausea) RF: 0 coenzyme Q10 [Co Q-10] 100 mg Capsule 100 mg PO DAILY RF: 0 polyethylene glycol 3350 [Miralax] 17 gram Powder In Packet 17 g PO DAILY PRN (Reason: constipation) 30 Days Qty: 30 RF: 0 sennosides-docusate sodium [Senna with Docusate Sodium] 8.6-50 mg Tablet 1 tab PO BID 30 Days Qty: 60 RF: 0 pantoprazole 40 mg Tablet,Delayed Release (Dr/Ec) 40 mg PO BID 30 Days Qty: 60 RF: 0 metoprolol tartrate 25 mg Tablet 12.5 mg PO BID 30 Days Qty: 30 RF: 0 carbidopa-levodopa 25-250 mg Tablet 1 tab PO QID RF: 0 alendronate 70 mg Tablet 70 mg PO WK RF: 0 clonazepam 0.5 mg Tablet 0.25 mg PO DIRECTED RF: 0 clonazepam 0.5 mg Tablet 0.5 mg PO HS RF: 0 venlafaxine 150 mg Capsule,Extended Release 24hr 150 mg PO QAM RF: 0 olanzapine 2.5 mg Tablet 1.25 mg PO TID RF: 0 aspirin [Aspir-81] 81 mg Tablet,Delayed Release (Dr/Ec) 81 mg PO QDL RF: 0 multivitamin with minerals [One Daily Complete] Tablet 1 tab PO QDL RF: 0 cholecalciferol (vitamin D3) [Vitamin D3] 400 unit Capsule 400 unit PO DAILY RF: 0 acetaminophen [Tylenol] 325 mg Tablet 650 mg PO Q6H PRN (Reason: Fever Or Pain) RF: 0 bisacodyl [Dulcolax (bisacodyl)] 10 mg Suppository 10 mg GA DAILY PRN (Reason: Constipation) RF: 0 oxycodone 5 mg Tablet 10 mg PO Q6H PRN (Reason: SEVERE PAIN) RF: 0 oxycodone 5 mg Tablet 5 mg PO Q6H PRN (Reason: MODERATE PAIN) RF: 0 Referrals Referrals: Rhonda Montero [Primary Care Provider] - The scribe's documentation has been prepared under my direction and personally reviewed by me in its entirety. I confirm that the note above accurately reflects all work, treatment, procedures, and medical decision making performed by me.
--- NOTE | 2018-04-13 17:14 | History & Physical Report ---
Addendum entered and electronically signed by Holly Fisher PA-C 20:37: Addendum (Blank) Addendum April 13, 2018 20:36 MRSA screen negative will discontinue vanco Original Note: Date of Service April 13, 2018 Assessment & Plan (1) Altered mental status: Ddx: Hypernatremia induced, Sepsis, metabolic encephalopathy, progression of parkinson disease On admission patient met SIRS/sepsis criteria HR 140, temp 39F, wbc 13.71 Lactic Acid 4.7 Received 1L IVF and broad spectrum antibiotics of Vancomycin and Zosyn Source: unknown, but presumed UTI Urine and Blood cultures pending Could also be in setting of profound free water deficit given hypernatremia -admit to med/surg telemetry -IVF D5 1/2 NS at 100cc/hr -Continue IV Vanco and Zosyn, dosed per pharmacy -check MRSA swab, if negative D/C Vanco -Keep NPO given cognitive state and hold all PO meds at this time (2) Hypernatremia: -plan as above -free water deficit ~ 3.5L -Goal to reduce serum NA by 10meq in 24 hour -repeat bmp in a.m. (limiting venous blood draws given patient is very difficult stick and goal of patient is comfort) (3) KRAIG (acute kidney injury): -baseline Cr 0.5-0.6 -on admission 92/1.90 -plan as above -avoid nephrotoxic agents (4) Elevated troponin: -0.072 -will repeat troponin in a.m. -most likely in setting of severe dehydration and free water deficit (5) Parkinson's disease: -on sinemet as outpatient -hold oral meds given current cognitive state -Dx approx 15 years ago, has been progessively declining -recently placed in SNF at [facility], given unable to care for patient at home (6) Dementia: -Advanced dementia in setting of parkinson disease on aricept in outpatient setting (7) Goals of care, counseling/discussion: -discussed with regarding prognosis of being very poor -he wishes for DNR/DNI, comfort is main goal; however he wishes to trial IV antibiotics and IV fluids prior to cessation of treatment (8) DVT prophylaxis: -heparin 5,000units SQ Q12hr Disposition: to be determined, patient with very poor prognosis Patient seen in collaboration with Dr. Varner, please see addendum History of Present Illness Chief Complaint: Respiratory distress x 1 day. Primary Care Provider: [facility] This is a 72-year-old white female with significant past medical history of end- stage Parkinson's disease, dementia, depression, osteoporosis who presents to [facility] from [facility] secondary to respiratory distress. ROS unobtainable from patient secondary to obtundation. is at bedside. According to SNF records patient exhibited episode of diaphoresis, respiratory distress with O2 sats in the 60s when it was recommended transfer to ED. noted unresponsive episode and this is why he felt she was sent to ED. Of note patient recently hospitalized at [facility] on 03/22 through 03/26/18 secondary to sepsis and UTI. She received 5 days of IV Zosyn and transition to oral Augmentin which she completed entire course. She had to urines obtained while at [facility], 1 which was negative, the other growing greater than 3 organisms recommending recollection. She also had lab work done on 04/09 which did reveal a mild leukocytosis at 12,000, serum sodium 153, BUN 31, creatinine 0.67. Allergies Allergy/AdvReac Type Severity Reaction Status Date / Time gabapentin Allergy Unknown INCREASED Verified 04/13/18 16:01 TREMORS, ANXIETY/DEPRESSION Sulfa (Sulfonamide Allergy Unknown ITCH Verified 04/13/18 16:01 Antibiotics) Home Medications Home Medications Medication Instructions Recorded Confirmed Type alendronate 70 mg PO WK 02/01/18 04/13/18 History aspirin [Aspir-81] 81 mg PO QDL 02/01/18 04/13/18 History carbidopa-levodopa 1 tab PO QID 02/01/18 04/13/18 History cholecalciferol (vitamin D3) 400 unit PO DAILY 02/01/18 04/13/18 History [Vitamin D3] clonazepam 0.25 mg PO DIRECTED 02/01/18 04/13/18 History clonazepam 0.5 mg PO HS 02/01/18 04/13/18 History multivitamin with minerals [One 1 tab PO QDL 02/01/18 04/13/18 History Daily Complete] olanzapine 1.25 mg PO TID 02/01/18 04/13/18 History venlafaxine 150 mg PO QAM 02/01/18 04/13/18 History coenzyme Q10 [Co Q-10] 100 mg PO DAILY 03/21/18 04/13/18 History donepezil [Aricept] 5 mg PO HS 03/21/18 04/13/18 History ondansetron 4 mg TRANSLINGUAL Q8 PRN 03/21/18 04/13/18 History metoprolol tartrate 12.5 mg PO BID 30 Days #30 tab 03/26/18 04/13/18 Rx pantoprazole 40 mg PO BID 30 Days #60 tab 03/26/18 04/13/18 Rx polyethylene glycol 3350 [Miralax] 17 g PO DAILY PRN 30 Days #30 ea 03/26/18 Rx sennosides-docusate sodium [Senna 1 tab PO BID 30 Days #60 tab 03/26/18 Rx with Docusate Sodium] acetaminophen [Tylenol] 650 mg PO Q6H PRN 04/13/18 04/13/18 History bisacodyl [Dulcolax (bisacodyl)] 10 mg AK DAILY PRN 04/13/18 04/13/18 History oxycodone 5 mg PO Q6H PRN 04/13/18 04/13/18 History oxycodone 10 mg PO Q6H PRN 04/13/18 04/13/18 History Past Med/Surg History Medical History Depression (Chronic) Osteoporosis (Chronic) Dementia (Chronic) Parkinson's disease (Chronic) Surgical History History of colonoscopy (Chronic) History of hammer toe correction (Resolved) Family History Other Family history non-contributory Social History marital status: Current Living Situation: [facility] Current Living Situation Comment: [facility] current occupational status: unemployed and retired current occupation: Retired schoolteacher Other Information That Helps Us Care for You: No Feels Safe at Home: Yes Safety Concerns: Feels Safe At This Time Smoking Status: Never smoker Hx Alcohol Use: No Hx Substance Use: No Beliefs That Will Affect Care: None Preferred Language: Emirati Communication Ability: unresponsi Linter Tender Required: No Review of Systems Unobtainable due to reduced consciousness Physical Exam 2 Vital Signs (Past 24 Hours): Last Vital Signs Temp 38.0 C H 04/13/18 16:34 Pulse 126 H 04/13/18 16:57 Resp 24 04/13/18 16:57 BP 111/88 04/13/18 16:57 Pulse Ox 92 04/13/18 16:57 Physical Exam: Gen: Thin, cachectic elderly female, lying in bed, minimally responsive, masked facies with parkinsonian affect, unable to verbalize Head: Normocephalic, Atraumatic, b/l temporal wasting Eyes: Sclera normal, no conjunctival injection, PERRLA, ENT:mucous membranes dry, unable to assess hearing/pharynx given cognition Neck: appears supple, no adenopathy, No JVD, no bruit, Resp: Diminished breath sounds at bases with bibasilar crackles, poor expiratory effort, unable to follow commands, increased respiratory effort on 15 L of O2 via nonrebreather CV: Tachycardic rate, regular rhythm, no murmur, rub, gallop, or ectopy Abd: +BS x 4, soft, nontender, nondistended Musculoskeletal: unable to assess given cognitive status, patient lying in right lateral decubitis position with flexor posturing, not responsive to verbal stimuli Extremities: No edema bilaterally Skin: cool, dry, with mottling to b/l anterior patellar surface, mod turgor, cap refill < 2sec Neuro: unresponsive, unable to assess neuro status or cranial nerves, GCS 5 : deferred Results & Data Laboratory Results Short CBC 04/13/18 Range/Units 14:50 WBC 13.71 H (4.8-10.8) K/uL Hgb 12.2 (12.0-16.0) g/dL Hct 41.7 (37-47) % Plt Count 348 (130-400) K/uL BMP 04/13/18 14:50 Sodium 170 H* Potassium 4.1 Chloride 135 H Carbon Dioxide 29 BUN 92 H Creatinine 1.90 H Glucose 144 H Calcium 9.1 Cardiac Enzymes 04/13/18 Range/Units 16:36 Troponin I 0.072 H* (0-0.045) ng/ml Liver Function 04/13/18 Range/Units 14:50 Total Bilirubin 1.6 H (0.1-1) mg/dl AST 67 H (15-37) U/L ALT 20 (12-78) U/L Alkaline Phosphatase 99 (45-117) U/L Albumin 3.2 L (3.4-5.0) gm/dl Urine 04/13/18 Range/Units 15:30 Urine Color Dark Yellow Urine Appearance Turbid H (Clear) Urine pH 5.0 (4.5-7.5) Ur Specific Reserve 1.026 (1.000-1.030) Urine Protein Trace H (Negative) Urine Glucose (UA) Negative (Negative) Diagnostic Findings Head CT: IMPRESSION: 1. No acute intracranial abnormality. CXR: FINDINGS: The heart is normal in size. No pleural effusions. No pneumothorax. Mild diffuse interstitial thickening which is likely chronic. No new focal lung consolidations. Small nodular density within left upper lobe corresponds the left anterior third rib. This remains unchanged. IMPRESSION: No significant change compared to the prior study. No acute process. ECG Rate (beats per minute): 140 Rhythm: sinus tachycardia Findings: + prolonged QT Additional Comments: QTC 531 Code Status & VTE Plan Code Status DNR/DNI Spoke with at bedside and understands his has very poor prognosis He wishes her to be kept comfortable, but does wish we trial IV antibiotics and IV fluids before cessation of treatment VTE Prophylaxis Plan VTE Prophylaxis will be ordered: Yes Supervising Physician Co-Signing Physician Notes HISTORY: Record reviewed. Patient interviewed and examined. Care coordinated with Holly Fisher PA-C. Please refer to her documentation for patient's history. Briefly, 72 YO F with advanced Parkinson's disease with progressive decline. [facility] Referred to ED due to worsening lethargy. PO intake has been minimal. Febrile in ED; no apparent cough, GI symptoms, urinary symptoms. EXAM: General- cachectic; appears to be chronically and acutely ill. Lungs- few scattered rhonchi Cardiovascular- RRR; tachy; no gallop appreciated; no JVD; no pretibial edema Abdomen- scaphoid, quiet bowel sounds, soft, nontender Extremities- no cyanosis; no calf tenderness Neuro- lethargic DATA: WBC 13,710 lactate 4.78 Na 170, BUN 92, creat 1.90. Other lab studies as noted. Chest x-ray reviewed by undersigned and formally interpreted by Radiology. No infiltrates, effusions, CHF. CT head neg per Radiology. EKG performed at [address] at 140 / minute, incomplete RBBB, repolarization abnormalities. Tracing similar to EKG performed 03/22/18, except that rate now faster. ASSESSMENT AND PLAN: Possible sepsis. Source not clear. Altered mental status- due to sepsis and / or metabolic encephalopathy. Severe hypernatremia. Acute kidney injury. Advanced Parkinson's disease. Blood and urine cultures obtained in ED. Received IV vancomycin and piperacillin / tazo. Nasal MRSA screen negative. Will DC vanco unless culture results warrant gram + coverage. IV fluids to correct volume depletion + hypernatremia. Goal will be to replace ~ 1/2 free water deficit over first 24 hours. Code status is DNR. understands the gravity of current illness. Please refer to ROBERT Fisher's documentation for discussion of other issues. _ (1) Altered mental status Altered mental status type: unspecified Coma depth: Coma timing: Qualified Code(s): R41.82 - Altered mental status, unspecified
[2018-04-13] MEDS ORDERED: DEXTROSE 5% 1,000 ML IV SCH (17:15)
[2018-04-13 18:00] LABS: BUN Creatinine Ratio 49.2 (10-20); Calcium 8.4 mg/dl (8.5-10.1); Creatinine Clr Calc Pharmacy 17.2 ml/min; Est GFR (African American) 32.5
[2018-04-13] MEDS ORDERED: ACETAMINOPHEN 325 MG TAB PO PRN (18:00)
[2018-04-13] MEDS ORDERED: ACETAMINOPHEN IV PRN (18:00)
[2018-04-13] MEDS ORDERED: ONDANSETRON INJ 2 MG/ML 2 ML VIAL IV PRN (18:00)
[2018-04-13] MEDS ORDERED: PATIENT'S HEIGHT AND/OR WEIGHT NEEDED SCH (18:00)
[2018-04-13] MEDS ORDERED: ACETAMINOPHEN 500 MG TAB PO PRN (18:13)
[2018-04-13 18:29] LABS: Potassium 3.4 mmol/L (3.5-5.1)
[2018-04-13] MEDS ORDERED: D5W AND 1/2NSS 1,000 ML IV SCH (18:30)
[2018-04-13] MEDS: HYDROmorphone INJ 0.5 MG/0.5 ML SYR IV PRN (18:57)
--- NOTE | 2018-04-13 19:43 | Pharmacy Report ---
Pharmacy Abx Dose Progress Nt - Date of Service April 13, 2018 - Pharmacy Dosing Scope The patient is currently receiving the following antimicrobial agents per Pharmacy consult: Vancomycin and zosyn - Objective Lab Results (24hrs): Laboratory Tests (24 Hours) 04/13/18 04/13/18 04/13/18 17:27 14:50 14:50 WBC Neut # (Auto) Creatinine 1.79 H 1.90 H Est Cr Clr Drug Dosing 17.2 Not Reportable Procalcitonin 0.22 04/13/18 14:50 WBC 13.71 H Neut # (Auto) 11.50 H Creatinine Est Cr Clr Drug Dosing Procalcitonin Micro Results: 04/13/18 15:30 Urine Culture - Pending Urine,Indwelling Cath 04/13/18 15:06 Blood Culture - Pending Blood 04/13/18 14:50 Blood Culture - Pending Blood - Risk Factors for Resistance * Resident in a [facility]cc or extended-care facility * Hospitalization for 48 hours or more within the past 90 days * Antimicrobial use within the last 90 days [zosyn / augmentin] - Assessment & Plan Assessment/Plan: Pharmacy consulted for vancomycin and zosyn dosing. Patient admitted with possible sepsis. Blood cultures x 2 are pending. Urine culture is pending. Vancomycin: * Patient received loading dose of vancomycin 750 mg x 1 (~20 mg/kg) in the ER * Estimated kinetics: t1/2 >36 hrs, ke~0.01 hr-1, CrCl ~17 ml/min * Patients renal function on admission elevated from baseline at 1.9 mg/dL ( baseline closer to 0.6 mg/dL) * Due to elevated renal function will hold further doses of vancomycin and obtain a random level in the morning to assist with further dosing * Estimated level for vancomycin still >15 mcg/ml (goal 15-20 mcg/ml) Zosyn: * 4.5 gm iv x 1 given in the ER - will start 3.375 gm iv q12 hrs (appropriate for CrCl <20 ml/min) Pharmacy will continue to follow and will adjust dose/frequency as necessary. Thank you.
[2018-04-13] MEDS: HEPARIN SOD 5,000 UNIT/0.5 ML VIAL SQ SCH (22:28)
[2018-04-13] MEDS: D5W AND 1/2NSS + 20MEQ KCL 20 MEQ/1,000 ML BAG IV SCH (22:35)
[2018-04-14] MEDS: PIPERACILLIN/TAZOBACTAM 3.375 GM in DEXTROSE 5% 100 ML IV SCH ×3 (00:09→19:50)
[2018-04-14] MEDS: HYDROmorphone INJ 0.5 MG/0.5 ML SYR IV PRN (06:47)
[2018-04-14 08:34] LABS: Albumin Globulin Ratio 0.6 (0.9-2); Albumin Level 2.3 gm/dl (3.4-5.0); BUN Creatinine Ratio 49.7 (10-20); Bilirubin,Total 1.5 mg/dl (0.1-1); Calcium 7.9 mg/dl (8.5-10.1); Creatinine Clr Calc Pharmacy 24.4 ml/min; Est GFR (African American) 47.8; Est GFR (Non-African American) 41.2; Potassium 3.5 mmol/L (3.5-5.1); Total Protein 6.3 gm/dl (6.4-8.2)
[2018-04-14] MEDS: D5W AND 1/2NSS + 20MEQ KCL 20 MEQ/1,000 ML BAG IV SCH (08:39)
[2018-04-14 08:53] LABS: Basophils # (auto) 0.01 K/uL (0-0.2); Basophils % (auto) 0.1 %; Eosinophils # (auto) 0.03 K/uL (0-0.5); Eosinophils % (auto) 0.3 %; Hematocrit (blood only) 33.1 % (37-47); Hemoglobin 9.5 g/dL (12.0-16.0); Immature Granulocytes # (auto) 0.05 K/uL (0.00-0.02); Immature Granulocytes % (auto) 0.5 %; Lymphocytes # (auto) 1.08 K/uL (1.2-3.4); Lymphocytes % (auto) 10.9 %; Mean Corpuscular Hgb Conc 28.7 g/dL (32-36); Mean Corpuscular Volume 97.1 fL (80-100); Mean Platelet Volume 13.1 fL (7.4-10.4); Monocytes # (auto) 0.06 K/uL (0.11-0.59); Monocytes % (auto) 0.6 %; Neutrophils # (auto) 8.68 K/uL (1.4-6.5); Neutrophils % (auto) 87.6 %; Platelet Count 207 K/uL (130-400); RDW Coefficient of Variation 19.7 % (11.5-14.5); RDW Standard Deviation 68.9 fL (36.4-46.3); Red Blood Count 3.41 M/uL (4.2-5.4); White Blood Count 9.91 K/uL (4.8-10.8)
[2018-04-14] MEDS: D5W AND 1/4NSS + 20MEQ KCL 20 MEQ/1,000 ML BAG IV SCH ×3 (09:06→23:57)
[2018-04-14 10:01] LABS: Troponin I 0.093 ng/ml (0-0.045)
[2018-04-14] MEDS: HEPARIN SOD 5,000 UNIT/0.5 ML VIAL SQ SCH ×2 (11:18→19:50)
[2018-04-14] MEDS: ACETAMINOPHEN 650 MG SUPP PR PRN ×3 (11:25→21:53)
[2018-04-14 15:21] LABS: BUN Creatinine Ratio 46.5 (10-20); Calcium 7.8 mg/dl (8.5-10.1); Creatinine Clr Calc Pharmacy 27.6 ml/min; Est GFR (African American) 55.4; Est GFR (Non-African American) 47.8; Potassium 3.5 mmol/L (3.5-5.1)
[2018-04-14] MEDS ORDERED: PANTOprazole 40 MG in SYRINGE 0 ML IV ONE (18:23)
[2018-04-14 20:37] LABS: BUN Creatinine Ratio 45.8 (10-20); Calcium 7.6 mg/dl (8.5-10.1); Creatinine Clr Calc Pharmacy 29.6 ml/min; Est GFR (African American) 60.5; Est GFR (Non-African American) 52.2; Potassium 3.6 mmol/L (3.5-5.1)
--- NOTE | 2018-04-14 21:13 | Hospitalist Progress Note ---
Date of Service April 14, 2018 Assessment & Plan (1) Sepsis: Met criteria for sepsis per current CMS definition. Initial lactate elevated, but hyperlactemia could be secondary to acute kidney injury rather than severe sepsis. Normal serum procalcitonin argues against severe sepsis. Blood and urine cultures obtained in ED. Patient received broad spectrum antibiotic coverage with vancomycin and piperacillin/tazobactam. Received IV fluid resuscitation. Vancomycin discontinued in light of negative MRSA nasal screen. Probable source of infection is urinary tract as discussed below. Hemodynamically stable. (2) UTI (urinary tract infection): Urinalysis demonstrated leukocyte esterase, WBCs, bacteria, many epithelial cells. Urine culture growing E. coli. Continue IV piperacillin/tazobactam pending sensitivities. (3) Acute kidney injury: BUN and creatinine 92/1.9, respectively. Acute kidney injury probably secondary to severe dehydration from inadequate oral intake. Receiving IV fluids with improvement. (4) Hypernatremia: Serum sodium 170 at time of admission. Initial primary IV fluid utilized was D5 1/2 normal saline due to severe volume depletion/acute kidney injury + hypernatremia. Serum sodium still elevated this morning. Primary IV changed to D5 1/4 NSS. Serum sodium slowly improving. (5) Elevated troponin: Serum troponin slightly elevated. EKG similar to previous tracings. Elevated serum troponin probably a nonspecific elevation secondary to acute kidney injury and other problems. Doubt acute coronary syndrome. (6) Parkinson's disease: Advance Parkinson's disease with poor functional status and little oral intake. (7) Altered mental status: Encephalopathy secondary to metabolic issues and/or infection. (8) Severe protein-calorie malnutrition: Poor oral intake for some time. Family reports 50 pound weight loss. Consider feeding tube for enteral nutritional support as discussed below. (9) Do not resuscitate status: CODE STATUS is DNR per previous discussions. Patient was seen by Palliative Care Medicine during last hospitalization and hospice care was discussed. Treatment goals discussed with yesterday and today. Patient has a living will which will be reviewed when available. Pros and cons of feeding tube for nutritional support and hydration discussed. indicates that specific issue has not been discussed in the past and would like to review her living will. Given the patient's end-stage Parkinson's disease, unlikely that enteral nutrition significantly changed her quality of life or prognosis. (10) DVT prophylaxis: Nonambulatory. SQ heparin. (11) Discharge planning issues: Remains critically ill. Expected return to [place] [place] if her condition stabilizes. Subjective Recheck for acute kidney injury, hyponatremia, possible sepsis, and other problems. Patient seen in her room around 1010 and reassess in the afternoon when her family was visiting. Temperature as high as 39. Patient was a bit more responsive this morning, but minimally verbal. No new problems/concerns reported by nursing staff. Physical Exam 2 Vital Signs (Past 24 Hours): Last Vital Signs Temp 38.3 C H 04/14/18 19:21 Pulse 101 H 04/14/18 19:21 Resp 24 04/14/18 19:21 BP 105/67 04/14/18 19:21 Pulse Ox 92 04/14/18 19:21 Constitutional: + ill appearing and + cachectic; no acute distress Respiratory: no respiratory distress Auscultation: lungs clear to auscultation bilaterally Cardiovascular: Rate/Rhythm: regular rhythm; + abnormal rate (less tachycardic ) Vessels: no JVD Extremities: no edema Gastrointestinal (Abdomen): Inspection/Auscultation: + scaphoid; + abnormal bowel sounds (quiet) Musculoskeletal: Extremities: no cyanosis Skin: stage 2 ulcers sacrum, right hip, left ankle, right heel Psychiatric: Orientation: + not alert (lethargic, minimally verbal) Genitourinary: + abnormal external appearance (Cohen cath) Results & Data Laboratory Results Short CBC 04/14/18 Range/Units 07:40 WBC 9.91 (4.8-10.8) K/uL Hgb 9.5 L (12.0-16.0) g/dL Hct 33.1 L (37-47) % Plt Count 207 (130-400) K/uL BMP 04/14/18 04/14/18 04/14/18 07:40 14:49 20:00 Sodium 171 H* 167 H* 165 H* Potassium 3.5 3.5 3.6 Chloride 139 H 139 H 138 H Carbon Dioxide 25 25 24 BUN 65 H 53 H 49 H Creatinine 1.30 H D 1.15 1.07 Glucose 155 H 178 H 159 H Calcium 7.9 L 7.8 L 7.6 L Cardiac Enzymes 04/14/18 Range/Units 07:40 Troponin I 0.093 H* (0-0.045) ng/ml Liver Function 04/14/18 Range/Units 07:40 Total Bilirubin 1.5 H (0.1-1) mg/dl AST 55 H (15-37) U/L ALT 43 (12-78) U/L Alkaline Phosphatase 74 (45-117) U/L Albumin 2.3 L (3.4-5.0) gm/dl _ (1) Sepsis Sepsis type: sepsis due to unspecified organism Qualified Code(s): A41.9 - Sepsis, unspecified organism (2) UTI (urinary tract infection) Encounter type: Hematuria presence: without hematuria Indwelling urinary catheter type: Urinary tract infection type: site unspecified Qualified Code( s): N39.0 - Urinary tract infection, site not specified (3) Altered mental status Altered mental status type: unspecified Coma depth: Coma timing: Qualified Code(s): R41.82 - Altered mental status, unspecified
[2018-04-15] MEDS: PIPERACILLIN/TAZOBACTAM 3.375 GM in DEXTROSE 5% 100 ML IV SCH ×3 (04:38→19:56)
[2018-04-15] MEDS: D5W AND 1/4NSS + 20MEQ KCL 20 MEQ/1,000 ML BAG IV SCH ×3 (07:40→16:15)
[2018-04-15] MEDS: HEPARIN SOD 5,000 UNIT/0.5 ML VIAL SQ SCH ×2 (07:40→19:56)
[2018-04-15] MEDS: ACETAMINOPHEN 650 MG SUPP PR PRN ×2 (07:40→13:42)
[2018-04-15 08:17] LABS: BUN Creatinine Ratio 42.5 (10-20); Calcium 7.8 mg/dl (8.5-10.1); Creatinine Clr Calc Pharmacy 36.6 ml/min; Est GFR (African American) 76.6; Est GFR (Non-African American) 66.1; Potassium 3.6 mmol/L (3.5-5.1)
--- NOTE | 2018-04-15 08:39 | XRay Report ---
XR chest 1V portable HISTORY: 72 years-old Female fever acute fever COMPARISON: Chest radiograph 04/13/2018 TECHNIQUE: Portable AP view of the chest FINDINGS: Cardiomediastinal and hilar silhouettes are within normal limits. No pneumothorax, pleural effusion, or overt pulmonary edema. Ill-defined opacities of the right lung base. Degenerative changes of the s houlders and spine. IMPRESSION: Ill-defined opacities of the right lung base may be secondary to composite pulmonary vasc ulature with atelectasis or mild pneumonitis also in the differential. The above report was generated using voice recognition software. It may contain grammatical, syntax o r spelling errors. Electronically signed by: Tony Cohn M.D. 04/15/2018 8:38 AM
[2018-04-15] MEDS: PANTOprazole 40 MG in SYRINGE 0 ML IV SCH (12:04)
--- NOTE | 2018-04-15 19:05 | Hospitalist Progress Note ---
Date of Service April 15, 2018 Assessment & Plan (1) Sepsis: Met criteria for sepsis per current CMS definition. Initial lactate elevated, but hyperlactemia could be secondary to acute kidney injury rather than severe sepsis. Normal serum procalcitonin argues against severe sepsis. Blood and urine cultures obtained in ED. Patient received broad spectrum antibiotic coverage with vancomycin and piperacillin/tazobactam. Received IV fluid resuscitation. Vancomycin discontinued in light of negative MRSA nasal screen. Probable source of infection is urinary tract as discussed below. Possible RLL infiltrate on today's chest x-ray. Continue piperacillin/tazobactam to cover urinary and pulmonary pathogens. Hemodynamically stable. (2) UTI (urinary tract infection): Urinalysis demonstrated leukocyte esterase, WBCs, bacteria, many epithelial cells. Urine culture growing E. coli. Continue IV piperacillin/tazobactam pending sensitivities. (3) Acute kidney injury: BUN and creatinine 92/1.9, respectively, at time of admission. Acute kidney injury probably secondary to severe dehydration from inadequate oral intake. Receiving IV fluids with improvement. Creatinine today = 0.88. (4) Hypernatremia: Serum sodium 170 at time of admission. Initial primary IV fluid utilized was D5 1/2 normal saline due to severe volume depletion/acute kidney injury + hypernatremia. Serum sodium still elevated this morning. Primary IV changed to D5 1/4 NSS. Serum sodium slowly improving - 162 this morning. Continue hypotonic IV fluid. (5) Elevated troponin: Serum troponin slightly elevated. EKG similar to previous tracings. Elevated serum troponin probably a nonspecific elevation secondary to acute kidney injury and other problems. Doubt acute coronary syndrome. (6) Parkinson's disease: Advance Parkinson's disease with poor functional status and little oral intake. (7) Altered mental status: Encephalopathy secondary to metabolic issues and/or infection. (8) Severe protein-calorie malnutrition: Poor oral intake for some time. Family reports 50 pound weight loss. Living will reviewed. Patient indicated no feeding tube in setting of terminal illness. Given the patient's end-stage Parkinson's disease, unlikely that enteral nutrition significantly changed her quality of life or prognosis. (9) Do not resuscitate status: CODE STATUS is DNR per previous discussions. Patient was seen by Palliative Care Medicine during last hospitalization and hospice care was discussed. Treatment goals discussed with . Living will indicates no feeding tubes or other extraordinary measures in setting of terminal illness. (10) DVT prophylaxis: Nonambulatory. SQ heparin. (11) Discharge planning issues: Remains critically ill. Expected return to [facility] if her condition stabilizes. Subjective Recheck for acute kidney injury, hyponatremia, possible sepsis, and other problems. Patient seen in her room around 0745. Tmax 39.2. Minimally responsive. No new problems/concerns reported by nursing staff. Unable to obtain review of systems due to condition. Physical Exam 2 Vital Signs (Past 24 Hours): Last Vital Signs Temp 37 C 04/15/18 15:41 Pulse 89 04/15/18 15:41 Resp 18 04/15/18 15:41 BP 121/75 04/15/18 15:41 Pulse Ox 99 04/15/18 15:41 Constitutional: + ill appearing and + cachectic; no acute distress Respiratory: no respiratory distress Auscultation: + rhonchi (scattered) and + wheezes (mild) Cardiovascular: Rate/Rhythm: regular rate and regular rhythm Vessels: + JVD Extremities: + edema (trace pretibial) Gastrointestinal (Abdomen): Inspection/Auscultation: + scaphoid; + abnormal bowel sounds (quiet) Musculoskeletal: Extremities: no cyanosis Psychiatric: Orientation: + not alert (lethargic, minimally verbal) Genitourinary: + abnormal external appearance (Cohen cath) Results & Data Laboratory Results [facility] 04/14/18 04/15/18 20:00 07:20 Sodium 165 H* 162 H* Potassium 3.6 3.6 Chloride 138 H 130 H Carbon Dioxide 24 23 BUN 49 H 38 H Creatinine 1.07 0.88 Glucose 159 H 176 H Calcium 7.6 L 7.8 L Microbiology 04/13/18 15:30 Urine,Indwelling Cath Urine Culture - Preliminary Escherichia coli Escherichia coli#2 04/13/18 15:06 Blood Blood Culture - Preliminary No growth to date. 04/13/18 14:50 Blood Blood Culture - Preliminary No growth to date. Diagnostic Findings Chest x-ray reviewed by the undersigned and formally interpreted by Radiology. ? RLL infiltrate vs atelectasis. _ (1) UTI (urinary tract infection) Encounter type: Hematuria presence: without hematuria Indwelling urinary catheter type: Urinary tract infection type: site unspecified Qualified Code( s): N39.0 - Urinary tract infection, site not specified (2) Sepsis Sepsis type: sepsis due to unspecified organism Qualified Code(s): A41.9 - Sepsis, unspecified organism (3) Altered mental status Altered mental status type: unspecified Coma depth: Coma timing: Qualified Code(s): R41.82 - Altered mental status, unspecified
[2018-04-16] MEDS: D5W AND 1/4NSS + 20MEQ KCL 20 MEQ/1,000 ML BAG IV SCH ×2 (02:24→13:01)
[2018-04-16] MEDS: PIPERACILLIN/TAZOBACTAM 3.375 GM in DEXTROSE 5% 100 ML IV SCH ×3 (04:18→20:06)
[2018-04-16 06:21] LABS: Mean Corpuscular Hgb Conc 30.3 g/dL (32-36); Mean Platelet Volume 13.4 fL (7.4-10.4); Platelet Count 154 K/uL (130-400); RDW Coefficient of Variation 19.2 % (11.5-14.5); RDW Standard Deviation 65.9 fL (36.4-46.3); Red Blood Count 3.55 M/uL (4.2-5.4); White Blood Count 6.78 K/uL (4.8-10.8)
[2018-04-16 06:49] LABS: BUN Creatinine Ratio 36.6 (10-20); Calcium 7.5 mg/dl (8.5-10.1); Creatinine Clr Calc Pharmacy 49.5 ml/min; Est GFR (African American) 103.5; Est GFR (Non-African American) 89.3; Potassium 3.5 mmol/L (3.5-5.1)
--- NOTE | 2018-04-16 07:22 | Hospitalist Progress Note ---
Date of Service April 16, 2018 Assessment & Plan (1) Sepsis: Met criteria for sepsis per current CMS definition. Initial lactate elevated, but hyperlactemia could be secondary to acute kidney injury rather than severe sepsis. Normal serum procalcitonin argues against severe sepsis. Blood and urine cultures obtained in ED. Patient received broad spectrum antibiotic coverage with vancomycin and piperacillin/tazobactam. Received IV fluid resuscitation. Vancomycin discontinued in light of negative MRSA nasal screen. Probable source of infection is urinary tract as discussed below. Possible RLL infiltrate on today's chest x-ray. Continue piperacillin/tazobactam to cover urinary and pulmonary pathogens - today is day # 4. Hemodynamically stable. (2) UTI (urinary tract infection): Urinalysis demonstrated leukocyte esterase, WBCs, bacteria, many epithelial cells. Urine culture growing 2 species E. coli: #1 resistant to ampicillin #2 resistant to ampicillin, cefazolin, TMP/sulfa Continue IV piperacillin/tazobactam. (3) Acute kidney injury: BUN and creatinine 92/1.9, respectively, at time of admission. Acute kidney injury probably secondary to severe dehydration from inadequate oral intake. Receiving IV fluids with improvement. Creatinine today = 0.55. (4) Hypernatremia: Serum sodium 170 at time of admission. Initial primary IV fluid utilized was D5 1/2 normal saline due to severe volume depletion/acute kidney injury + hypernatremia. Serum sodium still elevated this morning. Primary IV changed to D5 1/4 NSS. Serum sodium slowly improving - 153 this morning. Continue hypotonic IV fluid. (5) Elevated troponin: Serum troponin slightly elevated. EKG similar to previous tracings. Elevated serum troponin probably a nonspecific elevation secondary to acute kidney injury and other problems. Doubt acute coronary syndrome. (6) Parkinson's disease: Advance Parkinson's disease with poor functional status and little oral intake. Resume carbidopa / levodopa when able. (7) Altered mental status: Encephalopathy secondary to metabolic issues and/or infection. (8) Severe protein-calorie malnutrition: Poor oral intake for some time. Family reports 50 pound weight loss. Living will reviewed. Patient indicated no feeding tube in setting of terminal illness. Given the patient's end-stage Parkinson's disease, unlikely that enteral nutrition would significantly change her quality of life or prognosis. (9) Do not resuscitate status: CODE STATUS is DNR per previous discussions. Patient was seen by Palliative Care Medicine during last hospitalization and hospice care was discussed. Treatment goals discussed with . Living will indicates no feeding tubes or other extraordinary measures in setting of terminal illness. (10) DVT prophylaxis: Nonambulatory. SQ heparin. (11) Discharge planning issues: Remains seriously ill. Expected return to [facility] if her condition stabilizes. Subjective Recheck for acute kidney injury, hyponatremia, possible sepsis, and other problems. Patient seen in her room around 0715. Tmax 38.4. Minimally responsive. No new problems. Unable to obtain review of systems due to condition. Physical Exam 2 Vital Signs (Past 24 Hours): Last Vital Signs Temp 37.6 C H 04/16/18 05:08 Pulse 93 H 04/16/18 05:08 Resp 20 04/16/18 05:08 BP 164/85 H 04/16/18 05:08 Pulse Ox 98 04/16/18 05:08 Constitutional: + ill appearing and + cachectic; no acute distress Respiratory: no respiratory distress Auscultation: + rhonchi (scattered) Cardiovascular: Rate/Rhythm: regular rate and regular rhythm Vessels: + JVD Extremities: + edema (trace pretibial) Gastrointestinal (Abdomen): Inspection/Auscultation: + scaphoid; + abnormal bowel sounds (quiet) Musculoskeletal: Extremities: no cyanosis waffle boots applied Psychiatric: Orientation: + not alert (lethargic, minimally verbal) Genitourinary: + abnormal external appearance (Cohen cath) _ (1) Sepsis Sepsis type: sepsis due to unspecified organism Qualified Code(s): A41.9 - Sepsis, unspecified organism (2) UTI (urinary tract infection) Encounter type: Hematuria presence: without hematuria Indwelling urinary catheter type: Urinary tract infection type: site unspecified Qualified Code( s): N39.0 - Urinary tract infection, site not specified (3) Altered mental status Altered mental status type: unspecified Coma depth: Coma timing: Qualified Code(s): R41.82 - Altered mental status, unspecified
[2018-04-16] MEDS: HEPARIN SOD 5,000 UNIT/0.5 ML VIAL SQ SCH ×2 (08:14→22:01)
[2018-04-16] MEDS: PANTOprazole 40 MG in SYRINGE 0 ML IV SCH (11:33)
[2018-04-16] MEDS: ACETAMINOPHEN 650 MG SUPP PR PRN (15:44)
[2018-04-17] MEDS: D5W AND 1/4NSS + 20MEQ KCL 20 MEQ/1,000 ML BAG IV SCH (01:37)
[2018-04-17] MEDS: PIPERACILLIN/TAZOBACTAM 3.375 GM in DEXTROSE 5% 100 ML IV SCH ×3 (03:26→20:10)
[2018-04-17 08:35] LABS: BUN Creatinine Ratio 24.3 (10-20); Calcium 7.5 mg/dl (8.5-10.1); Creatinine Clr Calc Pharmacy 55.3 ml/min; Est GFR (African American) 105.7; Est GFR (Non-African American) 91.2; Potassium 3.1 mmol/L (3.5-5.1)
[2018-04-17] MEDS: HEPARIN SOD 5,000 UNIT/0.5 ML VIAL SQ SCH ×2 (08:51→20:18)
[2018-04-17] MEDS: [UNRECOGNIZED DRUG - OTHER] IV SCH ×2 (09:21→20:22)
[2018-04-17] MEDS: D5W IV SCH ×2 (09:21→20:22)
[2018-04-17] MEDS: POTASSIUM CHLORIDE IV SCH ×2 (09:21→20:22)
[2018-04-17] MEDS: HYDROmorphone INJ 0.5 MG/0.5 ML SYR IV PRN (10:03)
[2018-04-17] MEDS: PANTOprazole 40 MG in SYRINGE 0 ML IV SCH (11:22)
[2018-04-17] MEDS ORDERED: FUROSEMIDE 20 MG in SYRINGE 0 ML IV ONE (14:00)
[2018-04-17] MEDS: ACETAMINOPHEN 650 MG SUPP PR PRN (20:14)
--- NOTE | 2018-04-17 21:29 | Hospitalist Progress Note ---
Date of Service April 17, 2018 Assessment & Plan (1) Sepsis: Met criteria for sepsis per current CMS definition. Initial lactate elevated, but hyperlactemia could be secondary to acute kidney injury rather than severe sepsis. Normal serum procalcitonin argues against severe sepsis. Blood and urine cultures obtained in ED. Patient received broad spectrum antibiotic coverage with vancomycin and piperacillin/tazobactam. Received IV fluid resuscitation. Vancomycin discontinued in light of negative MRSA nasal screen. Probable source of infection is urinary tract as discussed below. Possible RLL infiltrate on CXR 04/15. Possible pneumonia. If so, probably present on admission but not apparent due to dehydration. Continue piperacillin/tazobactam to cover urinary and pulmonary pathogens - today is day # 5. Temp trending downward. Hemodynamically stable. (2) UTI (urinary tract infection): Urinalysis demonstrated leukocyte esterase, WBCs, bacteria, many epithelial cells. Urine culture growing 2 species E. coli: #1 resistant to ampicillin #2 resistant to ampicillin, cefazolin, TMP/sulfa Continue IV piperacillin/tazobactam. (3) Acute kidney injury: BUN and creatinine 92/1.9, respectively, at time of admission. Acute kidney injury probably secondary to severe dehydration from inadequate oral intake. Receiving IV fluids with improvement. Creatinine today = 0.61. (4) Hypernatremia: Serum sodium 170 at time of admission. Initial primary IV fluid utilized was D5 1/2 normal saline due to severe volume depletion/acute kidney injury + hypernatremia. Serum sodium still elevated this morning. Primary IV changed to D5 1/4 NSS. Serum sodium slowly improving - 145 this morning. Continue hypotonic IV fluid. (5) Elevated troponin: Serum troponin slightly elevated. EKG similar to previous tracings. Elevated serum troponin probably a nonspecific elevation secondary to acute kidney injury and other problems. Doubt acute coronary syndrome. (6) Parkinson's disease: Advance Parkinson's disease with poor functional status and little oral intake. Resume carbidopa / levodopa when able. (7) Altered mental status: Encephalopathy secondary to metabolic issues and/or infection. (8) Severe protein-calorie malnutrition: Poor oral intake for some time. Family reports 50 pound weight loss. Living will reviewed. Patient indicated no feeding tube in setting of terminal illness. Given the patient's end-stage Parkinson's disease, unlikely that enteral nutrition would significantly change her quality of life or prognosis. (9) Hypokalemia: K today = 3.1. Replace. Follow. (10) Do not resuscitate status: CODE STATUS is DNR per previous discussions. Patient was seen by Palliative Care Medicine during last hospitalization and hospice care was discussed. Treatment goals discussed with . Living will indicates no feeding tubes or other extraordinary measures in setting of terminal illness. (11) DVT prophylaxis: Nonambulatory. SQ heparin. (12) Discharge planning issues: Remains seriously ill. Expected return to [facility] if her condition stabilizes, possibly with hospice care. and sons given update yesterday. Subjective Recheck for acute kidney injury, hyponatremia, possible sepsis, and other problems. Patient seen in her room around 0720. Tmax 38.6. Remains minimally responsive. No new problems. Unable to obtain review of systems due to condition. Physical Exam 2 Vital Signs (Past 24 Hours): Last Vital Signs Temp 37 C 04/17/18 15:20 Pulse 95 H 04/17/18 15:20 Resp 24 04/17/18 15:20 BP 102/70 04/17/18 15:20 Pulse Ox 99 04/17/18 15:20 Constitutional: + ill appearing and + cachectic; no acute distress Respiratory: no respiratory distress Auscultation: + rhonchi (scattered) and + wheezes (mild) Cardiovascular: Rate/Rhythm: regular rate and regular rhythm Vessels: + JVD Extremities: + edema (trace pretibial) Gastrointestinal (Abdomen): Inspection/Auscultation: + scaphoid; + abnormal bowel sounds (quiet) Musculoskeletal: Extremities: no cyanosis Psychiatric: Orientation: + not alert (lethargic, minimally verbal) Genitourinary: + abnormal external appearance (Cohen cath) Results & Data Laboratory Results [facility] 04/17/18 07:18 Sodium 145 D Potassium 3.1 L Chloride 117 H Carbon Dioxide 21 BUN 15 Creatinine 0.61 Glucose 134 H Calcium 7.5 L _ (1) Sepsis Sepsis type: sepsis due to unspecified organism Qualified Code(s): A41.9 - Sepsis, unspecified organism (2) UTI (urinary tract infection) Encounter type: Hematuria presence: without hematuria Indwelling urinary catheter type: Urinary tract infection type: site unspecified Qualified Code( s): N39.0 - Urinary tract infection, site not specified (3) Altered mental status Altered mental status type: unspecified Coma depth: Coma timing: Qualified Code(s): R41.82 - Altered mental status, unspecified
[2018-04-18] MEDS: PIPERACILLIN/TAZOBACTAM 3.375 GM in DEXTROSE 5% 100 ML IV SCH ×2 (03:35→11:50)
[2018-04-18 06:47] LABS: BUN Creatinine Ratio 26.5 (10-20); Calcium 7.8 mg/dl (8.5-10.1); Creatinine Clr Calc Pharmacy 50.7 ml/min; Est GFR (African American) 97.7; Est GFR (Non-African American) 84.3; Potassium 3.8 mmol/L (3.5-5.1)
[2018-04-18] MEDS: HEPARIN SOD 5,000 UNIT/0.5 ML VIAL SQ SCH (07:49)
[2018-04-18] MEDS: D5W IV SCH (09:02)
[2018-04-18] MEDS: POTASSIUM CHLORIDE IV SCH (09:02)
[2018-04-18] MEDS: [UNRECOGNIZED DRUG - OTHER] IV SCH (09:02)
[2018-04-18] MEDS: PANTOprazole 40 MG in SYRINGE 0 ML IV SCH (11:08)
--- NOTE | 2018-04-18 11:33 | Palliative Care Consultation ---
Date of Consultation April 18, 2018 Assessment & Plan (1) Goals of care, counseling/discussion: -72 year old female with PMH end-stage Parkinson's dementia, non- ambulatory at baseline, depression, osteoporosis, and chronic constipation, presented from [facility] with respiratory distress. Found to have UTI, possible sepsis, was started on IV abx and IVF. Patient minimally responded to treatment and remains in her usual state of being bed-bound, total care, and ability to speak only a few words at a time. Patient was here at beginning of March 2018 for constipation, it was at that time that she made transition from home with her to SNF. Palliative care was consulted during last admission and plan was for SNF, skilled initially with eventual transition to hospice. Palliative care consulted again to discuss goals of care given patient' s end-stage condition and minimal responsiveness to treatment. -Met with patient, her Kt, and son Nathaniel this morning. Patient was first able to open eyes, said "no" when asked if having pain. Stated "yes" when asked if she was uncomfortable. She was unable to answer open ended questions. Did appear uncomfortable with furrowed brow. -Patient's , Kt, stated that at this point he would like to just focus on her comfort. -Discussed COMFORT MEASURES ONLY. Kt and Nathaniel both agreed that they would like to follow patient's wishes at this point and transition to MORTGAGE LOAN REVIEWER. Stop abx and IVF. Stop lab draws -Patient is bed-hold at [facility], but was in skilled side. economic manager following up. Patient can return to [facility] on comfort care. -Returned to patient's room to do POLST, her had already left. She is DNR which he confirmed. -Discontinue IV Dilaudid. -Start Roxanol 5mg PO/SL Q1h PRN pain or SOB. Hold only if RR <10. -Atropine 1% oph soln 4 drops Q1h PRN secretions. -Scopolamine patch 1.5mg TD patch Q72h. -Stop all other medications unrelated to comfort. (2) UTI (urinary tract infection): -Urine culture: E. coli: -Received Zosyn -Discontinue abx, now comfort measures only. Encounter type: Hematuria presence: without hematuria Indwelling urinary catheter type: Urinary tract infection type: site unspecified Qualified Code(s): N39.0 - Urinary tract infection, site not specified (3) Acute kidney injury: -Resolved. (4) Elevated troponin: -Troponin slightly elevated. Possibly related to dehydration/KRAIG. -Transitioned to MORTGAGE LOAN REVIEWER. (5) Parkinson's disease: -End-stage Parkinson's dementia. -FAST score 7c/7d. -PPS 20%. (6) Severe protein-calorie malnutrition: -Albumin 2.3. Family reports major weight loss recently. -Poor PO intake likely related to severe dementia. -Patient has living will which states she would not want feeding tube. -Transitioned to MORTGAGE LOAN REVIEWER. History of Present Illness Reason for Consultation: Goals of care Requesting Physician: Dr. Ortiz Attending Physician: Noam Ortiz MD History of Present Illness This 72 year old female with H end-stage Parkinson's dementia, non-ambulatory at baseline, depression, osteoporosis, and chronic constipation, presented from [facility] with respiratory distress. Found to have UTI, possible sepsis, was started on IV abx and IVF. Patient minimally responded to treatment and remains in her usual state of being bed-bound, total care, and ability to speak only a few words at a time. Patient was here at beginning of March 2018 for constipation, it was at that time that she made transition from home with her to SNF. Palliative care was consulted during last admission and plan was for SNF, skilled initially with eventual transition to hospice. Palliative care consulted again to discuss goals of care given patient's end-stage condition and minimal responsiveness to treatment. See A&P. Thank you kindly for this consult. I will follow as needed. Allergies Allergy/AdvReac Type Severity Reaction Status Date / Time gabapentin Allergy Unknown INCREASED Verified 04/13/18 16:01 TREMORS, ANXIETY/DEPRESSION Sulfa (Sulfonamide Allergy Unknown ITCH Verified 04/13/18 16:01 Antibiotics) Home Medications Home Medications Medication Instructions Recorded Confirmed Type alendronate 70 mg PO WK 02/01/18 04/13/18 History aspirin [Aspir-81] 81 mg PO QDL 02/01/18 04/13/18 History carbidopa-levodopa 1 tab PO QID 02/01/18 04/13/18 History cholecalciferol (vitamin D3) 400 unit PO DAILY 02/01/18 04/13/18 History [Vitamin D3] clonazepam 0.25 mg PO DIRECTED 02/01/18 04/13/18 History clonazepam 0.5 mg PO HS 02/01/18 04/13/18 History multivitamin with minerals [One 1 tab PO QDL 02/01/18 04/13/18 History Daily Complete] olanzapine 1.25 mg PO TID 02/01/18 04/13/18 History venlafaxine 150 mg PO QAM 02/01/18 04/13/18 History coenzyme Q10 [Co Q-10] 100 mg PO DAILY 03/21/18 04/13/18 History donepezil [Aricept] 5 mg PO HS 03/21/18 04/13/18 History ondansetron 4 mg TRANSLINGUAL Q8 PRN 03/21/18 04/13/18 History metoprolol tartrate 12.5 mg PO BID 30 Days #30 tab 03/26/18 04/13/18 Rx pantoprazole 40 mg PO BID 30 Days #60 tab 03/26/18 04/13/18 Rx polyethylene glycol 3350 [Miralax] 17 g PO DAILY PRN 30 Days #30 ea 03/26/18 Rx sennosides-docusate sodium [Senna 1 tab PO BID 30 Days #60 tab 03/26/18 Rx with Docusate Sodium] acetaminophen [Tylenol] 650 mg PO Q6H PRN 04/13/18 04/13/18 History bisacodyl [Dulcolax (bisacodyl)] 10 mg PA DAILY PRN 04/13/18 04/13/18 History oxycodone 5 mg PO Q6H PRN 04/13/18 04/13/18 History oxycodone 10 mg PO Q6H PRN 04/13/18 04/13/18 History Patient History Medical History Depression (Chronic) Osteoporosis (Chronic) Dementia (Chronic) Parkinson's disease (Chronic) Surgical History History of colonoscopy (Chronic) History of hammer toe correction (Resolved) Family History Other Family history non-contributory Social History marital status: Current Living Situation: Shelter Current Living Situation Comment: [facility] current occupational status: unemployed and retired current occupation: Retired schoolteacher Other Information That Helps Us Care for You: No Feels Safe at Home: Yes Safety Concerns: Feels Safe At This Time Smoking Status: Never smoker Hx Alcohol Use: No Hx Substance Use: No Beliefs That Will Affect Care: None Communication Ability: Impaired Physical Exam 2 Vital Signs (Past 24 Hours): Last Vital Signs Temp 36.6 C 04/18/18 07:51 Pulse 105 H 04/18/18 07:51 Resp 22 04/18/18 07:51 BP 145/87 H 04/18/18 07:51 Pulse Ox 98 04/18/18 07:51 Time Spent Midlevel 70 minutes with >50% of time spent at bedside with patient and family discussing GOC and EOL issues.
[2018-04-18] MEDS ORDERED: ATROPINE SULFATE 1% OP SOLN 5 ML BTL SL PRN (12:10)
[2018-04-18] MEDS ORDERED: SCOPOLAMINE 1.5 MG TDSY TD SCH (12:45)
--- NOTE | 2018-04-18 13:52 | Hospitalist Progress Note ---
Date of Service April 18, 2018 Assessment & Plan (1) Sepsis: Sepsis Possible Sources: UTI, Pnuemonia Urine culture:E.coli Blood culture: no growth to date Received IV Antibiotics Transitioned to comfort measures only Family aware of patient's condition and in agreement with plan of care (2) UTI (urinary tract infection): Urine culture: E. coli: Received Zosyn (3) Acute kidney injury: Likely prerenal Resolved (4) Hypernatremia: Serum sodium 170 on presentation Received IV Fluids Sodium levels normalized (5) Elevated troponin: Troponin slightly elevated. Transitioned to CIRCUS PERFORMER (6) Parkinson's disease: Advance Parkinson's disease with poor functional status and little oral intake. Was on carbidopa / levodopa (7) Altered mental status: Encephalopathy secondary to metabolic issues and/or infection. (8) Severe protein-calorie malnutrition: Very poor oral intake Family reports 50 pound weight loss. Living will reviewed. no feeding tube as per records Poor prognosis. (9) Hypokalemia: Resolved (10) Do not resuscitate status: DNI/DNR Currently on comfort measures only (11) DVT prophylaxis: SQ heparin (12) Discharge planning issues: Poor prognosis Remains Obtunded Palliative Care following director volunteer services for discharge planning Subjective Patient is seen and examined at bedside Patient remains obtunded. Unable to provide history Doesn't follow commands Discussed with Patient's Spouse and Son Also discussed with palliative care Family prefers that patient be transitioned to comfort measures only Physical Exam 2 Vital Signs (Past 24 Hours): Last Vital Signs Temp 36.6 C 04/18/18 07:51 Pulse 105 H 04/18/18 07:51 Resp 22 04/18/18 07:51 BP 145/87 H 04/18/18 07:51 Pulse Ox 98 04/18/18 07:51 Physical Exam: Physical Exam: Vitals signs as noted above General Appearance:chronic ill appearing, thin, frail, no apparent distress Head: normocephalic, Atraumatic Eyes: normal inspection Neck: supple, Trachea midline Respiratory/Chest: coarse breath sounds, +rhonchi Cardiovascular: S1, S2, No murmur Abdomen/GI:Soft, Non tender, Bowel sounds present Extremities/Musculoskelatal:normal inspection, +pedal edema Neurologic/Psych:Obtunded, could not perform complete neuro exam Results & Data Laboratory Results [facility] 04/18/18 05:37 Sodium 143 Potassium 3.8 D Chloride 114 H Carbon Dioxide 22 BUN 19 H Creatinine 0.72 Glucose 135 H Calcium 7.8 L _ (1) Sepsis Sepsis type: sepsis due to unspecified organism Qualified Code(s): A41.9 - Sepsis, unspecified organism (2) UTI (urinary tract infection) Encounter type: Hematuria presence: without hematuria Indwelling urinary catheter type: Urinary tract infection type: site unspecified Qualified Code( s): N39.0 - Urinary tract infection, site not specified (3) Altered mental status Altered mental status type: unspecified Coma depth: Coma timing: Qualified Code(s): R41.82 - Altered mental status, unspecified
[2018-04-18] MEDS: MoRPHine SULFATE 5 MG/0.25 ML UDP PO PRN ×2 (15:23→17:40)
[2018-04-18] MEDS: CHECK SCOPOLAMINE PATCH PLACEMENT SCH ×2 (15:26→23:38)
[2018-04-18] MEDS: MoRPHine SULFATE 2 MG/ML CARP IV PRN ×2 (18:46→23:41)
[2018-04-19] MEDS: CHECK SCOPOLAMINE PATCH PLACEMENT SCH (07:33)
[2018-04-19] MEDS: MoRPHine SULFATE 5 MG/0.25 ML UDP PO PRN ×2 (07:33→13:20)
--- NOTE | 2018-04-19 12:25 | Hospitalist Progress Note ---
Date of Service April 19, 2018 Assessment & Plan (1) Sepsis: Sepsis Possible Sources: UTI, Pnuemonia Urine culture:E.coli Blood culture: no growth to date Received IV Antibiotics Currently on comfort measures only Family aware of patient's condition and in agreement with plan of care Plan to discharge to [facility] today (2) UTI (urinary tract infection): Urine culture: E. coli: Received Zosyn (3) Acute kidney injury: Likely prerenal Resolved (4) Hypernatremia: Serum sodium 170 on presentation Received IV Fluids Sodium levels normalized (5) Elevated troponin: Troponin slightly elevated. Transitioned to [employer] (6) Parkinson's disease: Advance Parkinson's disease with poor functional status and little oral intake. Was on carbidopa / levodopa (7) Altered mental status: Encephalopathy secondary to metabolic issues and/or infection. Patient remains Obtunded (8) Severe protein-calorie malnutrition: Very poor oral intake Family reports 50 pound weight loss. Living will reviewed. no feeding tube as per records Poor prognosis. (9) Hypokalemia: Resolved (10) Do not resuscitate status: DNI/DNR Currently on comfort measures only (11) DVT prophylaxis: SQ heparin (12) Discharge planning issues: Poor prognosis Remains Obtunded Palliative Care following Plan to discharge back to [facility] on comfort measures dental services director following Subjective Patient is seen and examined at bedside No apparent distress No family at bedside Remains unconscious On comfort measures only Planned to be discharged back to [facility] on comfort measures today Physical Exam 2 Vital Signs (Past 24 Hours): Last Vital Signs Temp 36.6 C 04/18/18 07:51 Pulse 105 H 04/18/18 07:51 Resp 22 04/18/18 07:51 BP 145/87 H 04/18/18 07:51 Pulse Ox 98 04/18/18 07:51 Physical Exam: Physical Exam: Vitals signs as noted above General Appearance:chronic ill appearing, thin, frail, no apparent distress Head: normocephalic, Atraumatic Eyes: normal inspection Neck: supple, Trachea midline Respiratory/Chest: coarse breath sounds, +rhonchi Cardiovascular: S1, S2, No murmur Abdomen/GI:Soft, Non tender, Bowel sounds present Extremities/Musculoskelatal:normal inspection, +pedal edema Neurologic/Psych:unconscious, could not perform complete neuro exam _ (1) Sepsis Sepsis type: sepsis due to unspecified organism Qualified Code(s): A41.9 - Sepsis, unspecified organism (2) UTI (urinary tract infection) Encounter type: Hematuria presence: without hematuria Indwelling urinary catheter type: Urinary tract infection type: site unspecified Qualified Code( s): N39.0 - Urinary tract infection, site not specified (3) Altered mental status Altered mental status type: unspecified Coma depth: Coma timing: Qualified Code(s): R41.82 - Altered mental status, unspecified
--- NOTE | 2018-04-19 12:26 | Palliative Care Progress Note ---
Date of Service April 19, 2018 Assessment & Plan (1) Goals of care, counseling/discussion: -72 year old female with PMH end-stage Parkinson's dementia, non- ambulatory at baseline, depression, osteoporosis, and chronic constipation, presented from [facility] with respiratory distress. Found to have UTI, possible sepsis, was started on IV abx and IVF. Patient minimally responded to treatment and remains in her usual state of being bed-bound, total care, and ability to speak only a few words at a time. Patient was here at beginning of March 2018 for constipation, it was at that time that she made transition from home with her to SNF. Palliative care was consulted during last admission and plan was for SNF, skilled initially with eventual transition to hospice. Palliative care consulted again to discuss goals of care given patient' s end-stage condition and minimal responsiveness to treatment. -COMFORT MEASURES ONLY. - and son, Na, in hallway as i approached patient's room. They asked if she was going to have IVF at [facility]. We talked about IVF at end of life and how they are not of benefit but can actually case problems. They both verbalized understanding and agreed patient will not have IVF. - Roxanol working well for patient. -Plan is for patient to return to [facility] on comfort care. (2) UTI (urinary tract infection): -Urine culture: E. coli: -Received Zosyn -Discontinue abx, now comfort measures only. (3) Acute kidney injury: -Resolved. (4) Elevated troponin: -Troponin slightly elevated. Possibly related to dehydration/KRAIG. -Transitioned to PROGRAM MANAGER SLP. (5) Parkinson's disease: -End-stage Parkinson's dementia. -FAST score 7c/7d. -PPS 20%. (6) Severe protein-calorie malnutrition: -Albumin 2.3. Family reports major weight loss recently. -Poor PO intake likely related to severe dementia. -Patient has living will which states she would not want feeding tube. -Transitioned to PROGRAM MANAGER SLP. Subjective Patient did open eyes, unable to answer questions at this time other than her name. Appears much more comfortable than yesterday. Talked with patient's and son in hallway. Review of Systems Unobtainable due to cognitive status Physical Exam 2 Vital Signs (Past 24 Hours): Last Vital Signs Temp 36.6 C 04/18/18 07:51 Pulse 105 H 01/02/19 07:51 Resp 22 04/18/18 07:51 BP 145/87 H 04/18/18 07:51 Pulse Ox 98 04/18/18 07:51 Constitutional: + ill appearing, + cachectic and + frail appearing ENMT: Ears: no hearing impairment Neck: normal visual inspection and trachea midline Respiratory: normal respiratory effort, lungs clear to auscultation Auscultation: + diminished lung sounds tracheal secretions noted, mild Cardiovascular: Rate/Rhythm: regular rate; + abnormal rhythm Vessels: no JVD Extremities: no edema Gastrointestinal (Abdomen): Inspection/Auscultation: abdomen normal to inspection and normal bowel sounds; abdomen not distended Percussion/ Palpation: abdomen soft Neurologic: awake and + confused Psychiatric: Orientation: oriented to person Supervising Physician Co-Signing Physician Notes Patient seen and examined, no family at bedside. Patient did not respond to voice or touch. PE: Patient appears comfortable, no acute distress HEENT: Neck hyperextended, dry mucous membranes Respiratory: Unlabored CV: Regular rate Abdomen: Not distended Neuro: Patient did not respond to voice or touch Agree with above note, assessment and plan as per YASMANY Rose -plan is for discharge later today to [facility] comfort care. Time Spent Midlevel 35 minutes with >50% of time spent at bedside with patient and family discussing condition and comfort measures. _ (1) UTI (urinary tract infection) Encounter type: Hematuria presence: without hematuria Indwelling urinary catheter type: Urinary tract infection type: site unspecified Qualified Code( s): N39.0 - Urinary tract infection, site not specified
--- NOTE | 2018-04-19 12:38 | Discharge Summary ---
Date of Service April 19, 2018 Admission HPI Per Admitting Provider This is a 72-year-old white female with significant past medical history of end- stage Parkinson's disease, dementia, depression, osteoporosis who presents to [facility] from [facility] nursing facility secondary to respiratory distress. ROS unobtainable from patient secondary to obtundation. is at bedside. According to SNF records patient exhibited episode of diaphoresis, respiratory distress with O2 sats in the 60s when it was recommended transfer to ED. noted unresponsive episode and this is why he felt she was sent to ED. Of note patient recently hospitalized at [facility] on 03/22 through 03/26/18 secondary to sepsis and UTI. She received 5 days of IV Zosyn and transition to oral Augmentin which she completed entire course. She had to urines obtained while at [facility], 1 which was negative, the other growing greater than 3 organisms recommending recollection. She also had lab work done on 04/09 which did reveal a mild leukocytosis at 12,000, serum sodium 153, BUN 31, creatinine 0.67. Admission Exam Per Admitting Provider Gen: Thin, cachectic elderly female, lying in bed, minimally responsive, masked facies with parkinsonian affect, unable to verbalize Head: Normocephalic, Atraumatic, b/l temporal wasting Eyes: Sclera normal, no conjunctival injection, PERRLA, ENT:mucous membranes dry, unable to assess hearing/pharynx given cognition Neck: appears supple, no adenopathy, No JVD, no bruit, Resp: Diminished breath sounds at bases with bibasilar crackles, poor expiratory effort, unable to follow commands, increased respiratory effort on 15 L of O2 via nonrebreather CV: Tachycardic rate, regular rhythm, no murmur, rub, gallop, or ectopy Abd: +BS x 4, soft, nontender, nondistended Musculoskeletal: unable to assess given cognitive status, patient lying in right lateral decubitis position with flexor posturing, not responsive to verbal stimuli Extremities: No edema bilaterally Skin: cool, dry, with mottling to b/l anterior patellar surface, mod turgor, cap refill < 2sec Neuro: unresponsive, unable to assess neuro status or cranial nerves, GCS 5 : deferred Principal Diagnosis Discharge Information Discharge Diagnosis Sepsis, UTI, Pneumonia Hypernatremia, Advanced Parkinson's disease Discharge Goals Decrease discomfort,Improve function Discharge Activity Limitations Resume your previous activity Discharge Data Allergies Allergy/AdvReac Type Severity Reaction Status Date / Time gabapentin Allergy Unknown INCREASED Verified 04/13/18 16:01 TREMORS, ANXIETY/DEPRESSION Sulfa (Sulfonamide Allergy Unknown ITCH Verified 04/13/18 16:01 Antibiotics) Consultations 04/18/18 08:07 Consult Case Management - Discharge Planning Routine Consult Palliative Care Routine 04/13/18 15:53 ED Decision to Admit Stat Procedures Performed CXR: Ill-defined opacities of the right lung base may be secondary to composite pulmonary vasculature with atelectasis or mild pneumonitis also in the differential. CT head: No acute intracranial abnormality. Ordered Studies 04/13/18 14:50 CT head/brain wo con Stat Hospital Course (1) Sepsis: Sepsis Possible Sources: UTI, Pnuemonia Urine culture:E.coli Blood culture: no growth to date Received IV Antibiotics Currently on comfort measures only Family aware of patient's condition and in agreement with plan of care Plan to [facility] (2) UTI (urinary tract infection): Urine culture: E. coli: Received Zosyn (3) Acute kidney injury: Likely prerenal Resolved (4) Hypernatremia: Serum sodium 170 on presentation Received IV Fluids Sodium levels normalized (5) Elevated troponin: Troponin slightly elevated. Transitioned to PHYSICIAN CODING SPECIALIST (6) Parkinson's disease: Advance Parkinson's disease with poor functional status and little oral intake. Was on carbidopa / levodopa (7) Altered mental status: Encephalopathy secondary to metabolic issues and/or infection. Patient remains Obtunded (8) Severe protein-calorie malnutrition: Very poor oral intake Family reports 50 pound weight loss. Living will reviewed. no feeding tube as per records Poor prognosis. (9) Hypokalemia: Resolved (10) Do not resuscitate status: DNI/DNR Currently on comfort measures only (11) DVT prophylaxis: SQ heparin (12) Discharge planning issues: Poor prognosis Remains Obtunded Palliative Care following Plan to discharge back to [facility] on comfort measures social services manager following Total Time Total Time Spent Total Time Spent (In Minutes): 35 minutes Total Time Includes: Examination of the Patient, Discharge Planning, Medication Reconciliation and Other Discharge Plan Discharge Items Patient Disposition: Transfer Half-Way Fac Reason For Visit: SEPSIS,KRAIG,HYPERNATREMIA Discharge Diagnosis: Sepsis, UTI, Pneumonia Hypernatremia, Advanced Parkinson's disease Discharge Goals: Decrease discomfort and Improve function Activity: Resume your previous activity Non-emergency contact: Primary Care Provider Call non-emergency contact if: you have any medication questions, your symptoms worsen, your pain is not controlled, your pain is worsening and your pain is unusual for you Diet: Regular Addtl Provider Instructions: Follow up with your Primary Care Physician at [facility] You are transitioned to comfort measures while at [facility]. Prescriptions: New morphine 20 mg/5 mL (4 mg/mL) Solution 5 mg PO Q1H PRN (Reason: pain) 3 Days Qty: 30 RF: 0 scopolamine base [Transderm-Scop] 1 mg over 3 days Patch 3 Day 1.5 mg Transdermal Q72H 3 Days Qty: 3 RF: 0 atropine 1 % Drops 4 drp Sublingual Q1H PRN (Reason: secretions) 3 Days Qty: 5 RF: 0 Continue donepezil [Aricept] 5 mg tablet 5 mg PO HS RF: 0 ondansetron 4 mg tablet,disintegrating 4 mg Translingual Q8 PRN (Reason: Nausea) RF: 0 coenzyme Q10 [Co Q-10] 100 mg Capsule 100 mg PO DAILY RF: 0 polyethylene glycol 3350 [Miralax] 17 gram Powder In Packet 17 g PO DAILY PRN (Reason: constipation) 30 Days Qty: 30 RF: 0 sennosides-docusate sodium [Senna with Docusate Sodium] 8.6-50 mg Tablet 1 tab PO BID 30 Days Qty: 60 RF: 0 pantoprazole 40 mg Tablet,Delayed Release (Dr/Ec) 40 mg PO BID 30 Days Qty: 60 RF: 0 metoprolol tartrate 25 mg Tablet 12.5 mg PO BID 30 Days Qty: 30 RF: 0 carbidopa-levodopa 25-250 mg Tablet 1 tab PO QID RF: 0 alendronate 70 mg Tablet 70 mg PO WK RF: 0 clonazepam 0.5 mg Tablet 0.25 mg PO DIRECTED RF: 0 clonazepam 0.5 mg Tablet 0.5 mg PO HS RF: 0 venlafaxine 150 mg Capsule,Extended Release 24hr 150 mg PO QAM RF: 0 olanzapine 2.5 mg Tablet 1.25 mg PO TID RF: 0 aspirin [Aspir-81] 81 mg Tablet,Delayed Release (Dr/Ec) 81 mg PO QDL RF: 0 multivitamin with minerals [One Daily Complete] Tablet 1 tab PO QDL RF: 0 cholecalciferol (vitamin D3) [Vitamin D3] 400 unit Capsule 400 unit PO DAILY RF: 0 acetaminophen [Tylenol] 325 mg Tablet 650 mg PO Q6H PRN (Reason: Fever Or Pain) RF: 0 bisacodyl [Dulcolax (bisacodyl)] 10 mg Suppository 10 mg [place] DAILY PRN (Reason: Constipation) RF: 0 oxycodone 5 mg Tablet 10 mg PO Q6H PRN (Reason: SEVERE PAIN) RF: 0 oxycodone 5 mg Tablet 5 mg PO Q6H PRN (Reason: MODERATE PAIN) RF: 0 Stand-Alone Forms: [facility] Discharge Orders: Discharge Order (Routine); Ordered 04/19/18 Ordered By: Noam Ortiz Skilled Items Patient informed of condition?: No DNR: Yes Discharge Level of Care: Skilled Communicable Disease: No Discharge Prognosis: Deteriorating Admission Data Admit Date/Time: 04/13/18 17:00 Attending Provider: Noam Ortiz Admit Provider: Benjy Varner Primary Care Provider: Rhonda Montero Other Providers: Benjy Varner ; Denise Hernandez Service: Medical Other Interventions: Discharge Summary Assessment (RN) Last Done: 04/19/18 13:11 DC Date/Time DO NOT enter until pt leaves facility: 04/19/18 14:35
== END 2018-04-19 14:35 | DRG 871 ==
LOC: ED 14:30 → SUATTDRO 17:00 → 2N 17:00 → 4E 04-18 22:12